=== PATIENT | female | born 1990 | race Caucasian/White ===

== ENCOUNTER 2016-12-16 11:12 | Outpatient (CLI) | payer MEDICAID, OTHER ==
[~2016-12-16] VITALS: Ht 165.1 cm; Wt 78.6 kg
[~2016-12-16 11:12] MED LIST: FIORICET PO; HYDR-3498 PO; IBUP400T22 PO; ONDA4TAB8 PO
[2016-12-16] MEDS ORDERED: PRENAT PO (11:42)
[2016-12-16 11:43] VITALS: BP 105/60; PULSE 94; RESP 18; Ht 165.1 cm; Wt 78.6 kg
[2016-12-16 12:42] LABS: ADD UMIC NO; URINE BILIRUBIN (Dip) NEGATIVE (NEGATIVE); URINE BLOOD (Dip) NEGATIVE (NEGATIVE); URINE COLOR LT. YELLOW (YELLOW); URINE GLUCOSE (Dip) NEGATIVE (NEGATIVE); URINE KETONES (Dip) NEGATIVE (NEGATIVE); URINE LEUKOCYTE ESTERASE (Dip) NEGATIVE (NEGATIVE); URINE NITRITE (Dip) NEGATIVE (NEGATIVE); URINE TOTAL PROTEIN (Dip) NEGATIVE (NEGATIVE); URINE UROBILINOGEN (Dip) 0.2 E.U./dL (0.1-1.0)
[2016-12-16 13:09] LABS: ADD SCAN DIFF NO
[2016-12-16 13:13] LABS: BASOPHILS % 0.2 % (0.0-2.0); EOSINOPHILS # 0.3 10^3/ul (0.0-0.5); EOSINOPHILS % 3.2 % (0.0-7.0); HEMATOCRIT 31.2 % (37.0-47.0); HEMOGLOBIN 10.3 g/dl (12.0-16.0); LYMPHOCYTES # 2.2 10^3/ul (0.8-2.9); LYMPHOCYTES % 25.1 % (15.0-51.0); MEAN CORPUSCULAR HEMOGLOBIN 28.2 pg (29.0-33.0); MEAN CORPUSCULAR VOLUME 85.5 fl (82.0-101.0); MEAN PLATELET VOLUME 12.3 fl (7.4-10.4); MONOCYTE # 0.5 10^3/ul (0.3-0.9); MONOCYTES % 6.1 % (0.0-11.0); NEUTROPHIL # 5.6 10^3/ul (1.6-7.5); NEUTROPHILS % 64.4 % (39.0-77.0); PLATELET COUNT 159 10^3/UL (140-415); RED BLOOD COUNT 3.65 10^6/ul (4.20-5.40); RED CELL DISTRIBUTION WIDTH 12.9 % (11.5-14.5); WHITE BLOOD COUNT 8.7 10^3/ul (4.8-10.8)
[2016-12-16 13:21] LABS: ALBUMIN 3.3 g/dl (3.3-4.9)
[2016-12-16 13:22] LABS: POTASSIUM 3.7 mmol/L (3.5-5.1)
[2016-12-16 13:24] LABS: ALBUMIN/GLOBULIN RATIO 1.13; BILIRUBIN,INDIRECT 0.1 mg/dl (0-1.1); BILIRUBIN,TOTAL 0.1 mg/dl (0.2-1.3); CREATININE 0.42 mg/dl (0.44-1.00); TOTAL PROTEIN 6.2 g/dl (6.1-8.1)
[2016-12-16 13:25] LABS: CALCIUM 8.8 mg/dl (8.4-10.2)
[2016-12-16] MEDS ORDERED: PROMETHAZINE 25 MG TAB PO ONE (13:30)
--- NOTE | 2016-12-16 14:27 | TRIAGE ---
OB Triage Datetime Report Generated by CPN: 12/16/2016 14:27 Datetime: 12/16/2016 14:00 Stage of : OB Triage Maternal Assessment Level of Consciousness: Fully Conscious Labor Evaluation Frequency: NONE Monitor Mode: External Monitor Mode: External US Pain Assessment Pain Scale: 0 Pain Presence: None/Denies Pain Goal: 0 Vaginal Exam Membrane Status: Intact Vaginal Bleeding: None Datetime: 12/16/2016 13:00 Stage of : OB Triage Maternal Assessment Level of Consciousness: Fully Conscious Labor Evaluation Frequency: NONE Monitor Mode: External Monitor Mode: External US (Annotations: ORDERS FOR LIMITED MONITORING) Pain Assessment Pain Scale: 0 Pain Presence: None/Denies Pain Goal: 0 Vaginal Exam Membrane Status: Intact Vaginal Bleeding: None Datetime: 12/16/2016 12:00 Stage of : OB Triage Maternal Assessment Level of Consciousness: Fully Conscious Labor Evaluation Frequency: NONE Monitor Mode: External Heart Rate FHR Baseline Rate: 140 Monitor Mode: External US Variability: Moderate 6-25 bpm Accelerations: AGA Decelerations: AGA Pain Assessment Pain Scale: 0 Pain Presence: None/Denies Pain Goal: 0 Vaginal Exam Membrane Status: Intact Vaginal Bleeding: None Datetime: 12/16/2016 11:41 Assessment Type: Triage Maternal Assessment Level of Consciousness: Fully Conscious DTR's/Clonus: DTRs 2+; No Clonus Headache: Denies Blurred Vision: No Respiratory Effort: Unlabored; Regular Rhythm; Equal Expansion Breath Sounds, Left: Clear and Equal Breath Sounds, Right: Clear and Equal Nausea/Vomiting: Denies RUQ Epigastric Pain: Denies Lower Extremities Edema: None Degree: None Upper Extremities Edema: None Degree: None Facial Edema: None Fall Risk Assessment History of Falling: (0) No Secondary Diagnosis: (0) No Ambulatory Aid: (0) Bedrest/Nurse Assist IV Therapy: (0) No Gait: (0) Normal/Bedrest/Immobile Mental Status: (0) Oriented to Own Ability Fall Score: 0 Fall Risk Score Definition: No Risk: No action required Datetime: 12/16/2016 11:39 Time of Arrival: 12/16/2016 11:05 EGA: 23.2 Arrived By: Ambulatory Arrived From: Office Chief Complaint: PT SENT FROM CLINIC FOR EVAL. OF CHOLESTASIS Movement: Present Contractions: Denies/Absent Rupture of Membranes: Denies Vaginal Bleeding: None Vaginal Discharge: Denies Recent Sexual Intercouse: Yes Abdominal Trauma: Not Applicable Patient Complaints: None Time Provider Notified: 12/16/2016 11:55 Provider Notified: KRISHNA Initial Plan: EFM, CBC, CMP, LFT'S, PHENERGAN PO
--- NOTE | 2016-12-16 17:45 | QN ---
Documentation Comment 26-year-old with IUP at 23 weeks and 2 days was sent from the clinic today for evaluation due to rash in her body and positive parvovirus antibody. Patient reports has been having erythematous papular rash started since 20 days ago. Per patient had a fever 20 days ago when the rashes started. However the fever resolved. Rash continued. Patient reports rash area only is localized and itching. She denies any itching of any other part of her body or itching of the pounds or soles. Patient denies any known history of food allergy or pollen allergy. She denies changing her detergents or body lotions or soap. Patient denies any sick contacts. She denied anyone around her with having the same rash. Patient had been tested for parvovirus in the clinic and was noted to have positive IgM and IgG antibody. Patient was given an unknown cream that worsened her rash and had burning sensation when she used topical cream. She had not tried any other medication. She denies any leaking of fluid, vaginal bleeding or decreased movement or contractions. Physical examination: General appearance, alert and oriented 4 patient is mild distress There is a maculopapular rash over the upper part of the chest and supple axillary area in both sides with slightly thickened skin. Exam consistent with eczema. Rashes localized and involves the entire axillary areas. There is no vesicle seen. Rash is maculopapular Abdomen: Soft, nontender, gravid, fundal height consistent with gestational age. Extremities no evidence of rash in any other part of the extremities or any other part of the body except stated above. Lower extremity, no calf tenderness, no cords palpable NST: heart tone appropriate for gestational age, no contraction on the monitor seen Hematology - 72 Hrs Test 12/16/16 12:40 White Blood Count 8.710^3/ul (4.8-10.8) Red Blood Count 3.6510^6/ul (4.20-5.40) L Hemoglobin 10.3g/dl (12.0-16.0) L Hematocrit 31.2% (37.0-47.0) L Mean Corpuscular Volume 85.5fl (82.0-101.0) Mean Corpuscular Hemoglobin 28.2pg (29.0-33.0) L Mean Corpuscular Hemoglobin Concent 33.0g/dl (32.0-37.0) Red Cell Distribution Width 12.9% (11.5-14.5) Platelet Count 69881^3/UL (140-415) Mean Platelet Volume 12.3fl (7.4-10.4) #H Neutrophils % 64.4% (39.0-77.0) Lymphocytes % 25.1% (15.0-51.0) Monocytes % 6.1% (0.0-11.0) Eosinophils % 3.2% (0.0-7.0) Basophils % 0.2% (0.0-2.0) Nucleated Red Blood Cells % 0.0/100WBC (0.0-0.0) Neutrophils # 5.610^3/ul (1.6-7.5) Lymphocytes # 2.210^3/ul (0.8-2.9) Monocytes # 0.510^3/ul (0.3-0.9) Eosinophils # 0.310^3/ul (0.0-0.5) Basophils # 0.010^3/ul (0.0-0.1) Nucleated Red Blood Cells # 0.010^3/ul (0.0-0.0) Chemistry Test 12/16/16 12:40 Sodium Level 135mmol/L (135-144) Potassium Level 3.7mmol/L (3.5-5.1) Chloride Level 107mmol/L (97-110) Carbon Dioxide Level 23mmol/L (21-31) Anion Gap 9 (8-16) Blood Urea Nitrogen 4mg/dl (7-20) L Creatinine 0.42mg/dl (0.44-1.00) L Glucose Level 77mg/dl (70-220) Calcium Level 8.8mg/dl (8.4-10.2) Total Bilirubin 0.1mg/dl (0.2-1.3) L Direct Bilirubin 0.00mg/dl (0.00-0.20) Indirect Bilirubin 0.1mg/dl (0-1.1) Aspartate Amino Transf (AST/SGOT) 17IU/L (15-46) Alanine Aminotransferase (ALT/SGPT) 29IU/L (13-69) Alkaline Phosphatase 88IU/L (42-121) Total Protein 6.2g/dl (6.1-8.1) Albumin 3.3g/dl (3.3-4.9) Globulin 2.90g/dl (1.3-3.2) Albumin/Globulin Ratio 1.13 Patient received a dose of oral promethazine and symptoms significantly resolved with promethazine p.o. Lab results from clinic reviewed. There is positive IgM and IgG antibody. This more correlates with chronic infection. Body rash is more correlates with allergy. Cannot rule out environmental versus food allergy which is in differential. At this point, patient will be discharged home with a follow-up with her OB clinic. She will likely need to be referred to maternal medicine for evaluation for positive parvovirus and possibly ultrasound evaluation. The rash that the patient currently have it for the last 20 days is more correlates with eczema and allergic reaction versus any infection. I would still suggest this case be referred to maternal medicine for evaluation and recommendation Assessment: IUP at 23 weeks and 2 days Maculopapular rash with itching for 20 days, exam consistent with contact dermatitis or allergic reaction. Responded well to promethazine oral. Patient will be discharged with promethazine to use it 4 times daily as needed Strict labor precaution and kick count discussed with the patient with follow-up with her OB clinic for evaluation and workup of positive parvovirus, although I think that this is likely related to a prior infection Patient verbalized understanding. All questions were answered. AMANDA KELLER MD Dec 16, 2016 17:45
== END 2016-12-16 14:36 | disposition home or self-care (01) ==
LOC: OBT 11:12 → L-D 11:13 → OBT 14:36
PROVIDERS: ATTEND Obstetrics & Gynecology Obstetrics
DX: O60.02 Preterm labor without delivery, second trimester (principal); O26.892 Other specified pregnancy related conditions, second trimester; R21 Rash and other nonspecific skin eruption; Z3A.23 23 weeks gestation of pregnancy
CPT/HCPCS: 36415; 80053; 80076; 81003; 85025; Z7500; Z7610; G0463

== ENCOUNTER 2017-02-08 18:07 | Outpatient (CLI) | payer OTHER ==
[~2017-02-08] VITALS: Ht 165.1 cm; Wt 82.5 kg
[~2017-02-08 18:07] MED LIST changes: -FIORICET PO; -HYDR-3498 PO; -IBUP400T22 PO; -ONDA4TAB8 PO; +PRENAT PO
[2017-02-08 18:16] VITALS: Ht 165.1 cm; Wt 82.5 kg
[2017-02-08 18:17] VITALS: BP 110/57; PULSE 96; RESP 18
--- NOTE | 2017-02-08 19:17 | RADRPT ---
PROCEDURE: US OB. CLINICAL INDICATION: Size and dates TECHNIQUE: Multiple sonographic images of the pelvis and gravid uterus were obtained. The images were reviewed on a PACS workstation. COMPARISON: No prior studies are available for comparison. FINDINGS: There is a single viable intrauterine gestation. Cardiac activity is present with 156 beats per min rene. There is a vertex presentation. The placenta is fundal. There is no evidence for an abruption or placenta previa. There is a normal amount of amniotic fluid with an LEEANN = 14.5 cm. Measurements were made in order to determine age. The results are as follows: BPD =7.9 cm HC =29.2 cm AC =30.1 cm FL =6.5 cm Estimated gestational age of approximately 32 weeks and 6 days based on ultrasound measurements. Clinical age: 32 weeks and 5 days. The estimated date of delivery is 03/30/17, based on ultrasound measurements. The EFW = 2190 g, 63%, based on LMP age. RPTAT: AA IMPRESSION: Single viable intrauterine gestation of approximately 32 weeks and 6 days based on ultrasound measu rements. .Miky Bond MD, Date Time Electronically viewed and signed by .Miky Bond MD, on 02/08/2017 19:17 .S/
[2017-02-08 19:37] LABS: ADD SCAN DIFF NO
[2017-02-08 19:41] LABS: BASOPHILS % 0.1 % (0.0-2.0); EOSINOPHILS # 0.2 10^3/ul (0.0-0.5); EOSINOPHILS % 1.7 % (0.0-7.0); HEMATOCRIT 29.7 % (37.0-47.0); HEMOGLOBIN 9.7 g/dl (12.0-16.0); LYMPHOCYTES # 2.3 10^3/ul (0.8-2.9); LYMPHOCYTES % 26.9 % (15.0-51.0); MEAN CORPUSCULAR HEMOGLOBIN 27.1 pg (29.0-33.0); MEAN CORPUSCULAR HGB CONC 32.7 g/dl (32.0-37.0); MEAN PLATELET VOLUME 12.8 fl (7.4-10.4); MONOCYTE # 0.7 10^3/ul (0.3-0.9); MONOCYTES % 7.8 % (0.0-11.0); NEUTROPHIL # 5.4 10^3/ul (1.6-7.5); NEUTROPHILS % 61.9 % (39.0-77.0); PLATELET COUNT 139 10^3/UL (140-415); RED BLOOD COUNT 3.58 10^6/ul (4.20-5.40); RED CELL DISTRIBUTION WIDTH 12.5 % (11.5-14.5); WHITE BLOOD COUNT 8.7 10^3/ul (4.8-10.8)
[2017-02-08 19:52] LABS: ADD UMIC YES; URINE BILIRUBIN (Dip) NEGATIVE (NEGATIVE); URINE BLOOD (Dip) NEGATIVE (NEGATIVE); URINE COLOR LT. YELLOW (YELLOW); URINE KETONES (Dip) NEGATIVE (NEGATIVE); URINE LEUKOCYTE ESTERASE (Dip) TRACE (NEGATIVE); URINE NITRITE (Dip) NEGATIVE (NEGATIVE); URINE TOTAL PROTEIN (Dip) NEGATIVE (NEGATIVE); URINE UROBILINOGEN (Dip) 0.2 E.U./dL (0.1-1.0)
[2017-02-08 19:55] LABS: POTASSIUM 3.4 mmol/L (3.5-5.1)
[2017-02-08 19:57] LABS: ALBUMIN/GLOBULIN RATIO 0.96; BILIRUBIN,INDIRECT 0.1 mg/dl (0-1.1); BILIRUBIN,TOTAL 0.1 mg/dl (0.2-1.3); CREATININE 0.44 mg/dl (0.44-1.00); TOTAL PROTEIN 6.1 g/dl (6.1-8.1)
[2017-02-08 19:58] LABS: CALCIUM 9.1 mg/dl (8.4-10.2)
[2017-02-08 20:04] LABS: BACTERIA,URINE FEW; SQUAMOUS EPITHELIAL CELL,UR MODERATE; URINE RBCS NONE SEEN /HPF (0)
[2017-02-08] MEDS ORDERED: LACTATED RINGER'S 1,000 ML IV STA (20:41)
[2017-02-08] MEDS ORDERED: LACTATED RINGER'S 1,000 ML IV SCH (21:45)
--- NOTE | 2017-02-08 21:49 | RADRPT ---
PROCEDURE: Limited obstetric ultrasound CLINICAL INDICATION: Pain TECHNIQUE: Multiple transverse and longitudinal grayscale images of the pelvis were obtained shetty svaginally.. COMPARISON: same day FINDINGS: The cervix is closed with a length of 4.5 cm. RPTAT: AA IMPRESSION: Cervix length measures 4.5 cm. .Miky Bond MD, MD Date Time Electronically viewed and signed by .Miky Bond MD, on 02/08/2017 21:49 .S/
--- NOTE | 2017-02-08 23:50 | TRIAGE ---
OB Triage Datetime Report Generated by CPN: 02/08/2017 23:50 Datetime: 02/08/2017 23:00 Stage of : OB Triage Datetime: 02/08/2017 22:57 Stage of : OB Triage Labor Evaluation Frequency: x6 Monitor Mode: External Duration (sec)2399: 50-70 Quality: Mild Resting Tone Register: Relaxed Heart Rate FHR Baseline Rate: 125 Monitor Mode: External US Variability: Moderate 6-25 bpm Accelerations: 15X15 Decelerations: Variable Category: Category I Comments: Appropriate for GA Datetime: 02/08/2017 22:54 Stage of : OB Triage Datetime: 02/08/2017 22:47 Stage of : OB Triage Datetime: 02/08/2017 21:30 Stage of : OB Triage Labor Evaluation Frequency: 2-9 Monitor Mode: External Duration (sec)2399: 40-70 Quality: Mild Resting Tone Register: Relaxed Heart Rate FHR Baseline Rate: 135 Monitor Mode: External US Variability: Moderate 6-25 bpm Accelerations: 15X15 Decelerations: None Category: Category I Datetime: 02/08/2017 21:04 Stage of : OB Triage Vaginal Exam Dilatation (cms): 0.0 Effacement (%): 0 Exam By: Dr Delshad Vaginal Bleeding: None Datetime: 02/08/2017 20:59 Stage of : OB Triage Datetime: 02/08/2017 20:30 Stage of : OB Triage Labor Evaluation Frequency: 4-9 Monitor Mode: External Duration (sec)2399: 40-80 Quality: Mild Resting Tone Register: Relaxed Heart Rate FHR Baseline Rate: 140 Monitor Mode: External US Variability: Moderate 6-25 bpm Accelerations: 15X15 Decelerations: Variable Category: Category I Comments: APPROPRIATE FOR GA Datetime: 02/08/2017 19:30 Stage of : OB Triage Labor Evaluation Frequency: 4-10 Monitor Mode: External Duration (sec)2399: 40-100 Quality: Mild Resting Tone Register: Relaxed Heart Rate FHR Baseline Rate: 140 Monitor Mode: External US Variability: Moderate 6-25 bpm Accelerations: 15X15 Decelerations: None Category: Category I Datetime: 02/08/2017 18:47 Stage of : OB Triage Labor Evaluation Frequency: X3 Monitor Mode: External Duration (sec)2399: 40-50 Pattern: Normal: <= 5 Contractions in 10 Minutes Resting Tone Register: Relaxed Heart Rate FHR Baseline Rate: 140 Monitor Mode: External US Variability: Moderate 6-25 bpm Accelerations: 15X15 Decelerations: None Category: Category I Datetime: 02/08/2017 18:32 Assessment Type: Admission Assessment Maternal Assessment Level of Consciousness: Fully Conscious DTR's/Clonus: DTRs 2+; No Clonus Headache: Generalized Blurred Vision: No Respiratory Effort: Unlabored; Regular Rhythm; Equal Expansion Breath Sounds, Left: Clear and Equal Breath Sounds, Right: Clear and Equal Nausea/Vomiting: Present RUQ Epigastric Pain: Present Lower Extremities Edema: None Degree: None Upper Extremities Edema: None Degree: None Facial Edema: None Fall Risk Assessment History of Falling: (0) No Secondary Diagnosis: (0) No Ambulatory Aid: (0) Bedrest/Nurse Assist IV Therapy: (0) No Gait: (0) Normal/Bedrest/Immobile Mental Status: (0) Oriented to Own Ability Fall Score: 0 Fall Risk Score Definition: No Risk: No action required Datetime: 02/08/2017 18:30 Time of Arrival: 02/08/2017 18:02 EGA: 31.0 Arrived By: Ambulatory Arrived From: Office Chief Complaint: PT. WITH A REFERRAL FOR C/O NAUSEA, RUQ Movement: Present Contractions: Denies/Absent Rupture of Membranes: Denies Vaginal Bleeding: None Vaginal Discharge: Denies Recent Sexual Intercouse: Denies Abdominal Trauma: Not Applicable Patient Complaints: None Provider Notified: DR. JAMISON Initial Plan: TOCO/US, CBC, CMP, AMALYSE, LIPASE, UA. EFW, LEEANN Datetime: 02/08/2017 18:17 Stage of : OB Triage Pain Assessment Pain Scale: 8 Pain Presence: Intermittent Pain Type: Contraction Pain Relief Measures: Comfort Measures Pain Assessment Comments: RUQ Datetime: 12/16/2016 11:41 Fall Score: 0 Fall Risk Score Definition: No Risk: No action required Datetime: 12/16/2016 11:39 EGA: 23.2
== END 2017-02-08 23:15 | disposition home or self-care (01) ==
LOC: L-D 18:07 → OBT 18:07 → L-D 18:09 → OBT 23:15
PROVIDERS: ATTEND Obstetrics & Gynecology
DX: O26.893 Other specified pregnancy related conditions, third trimester (principal); Z3A.31 31 weeks gestation of pregnancy; R11.0 Nausea; R10.11 Right upper quadrant pain
CPT/HCPCS: 36415; 76815; 76817; 80053; 81001; 82150; 83690; 85025; 96360; 96361; J7120; Z7500; G0463

== ENCOUNTER 2017-02-24 14:34 | Outpatient (CLI) | payer OTHER ==
[~2017-02-24] VITALS: Ht 165.1 cm; Wt 81.8 kg
[2017-02-24 15:17] VITALS: Ht 165.1 cm; Wt 81.8 kg
[2017-02-24 15:19] VITALS: BP 106/66; PULSE 91; RESP 20
[2017-02-24 15:42] LABS: ADD UMIC NO; URINE BILIRUBIN (Dip) NEGATIVE (NEGATIVE); URINE BLOOD (Dip) NEGATIVE (NEGATIVE); URINE COLOR LT. YELLOW (YELLOW); URINE KETONES (Dip) NEGATIVE (NEGATIVE); URINE LEUKOCYTE ESTERASE (Dip) NEGATIVE (NEGATIVE); URINE NITRITE (Dip) NEGATIVE (NEGATIVE); URINE TOTAL PROTEIN (Dip) NEGATIVE (NEGATIVE); URINE UROBILINOGEN (Dip) 0.2 E.U./dL (0.1-1.0)
--- NOTE | 2017-02-24 15:56 | RADRPT ---
PROCEDURE: US OB. CLINICAL INDICATION: Size and dates , labor TECHNIQUE: Multiple sonographic images of the pelvis and gravid uterus were obtained. The images were reviewed on a PACS workstation. COMPARISON: 02/08/2017 FINDINGS: There is a single viable intrauterine gestation. Cardiac activity is present with 129 beats per min rene. There is a vertex presentation. The placenta is posterior. There is no evidence for an abruption or placenta previa. There is a normal amount of amniotic fluid with an LEEANN = 13.6 cm. Measurements were made in order to determine age. The results are as follows: BPD =8.7 cm HC =31.6 cm AC =30.8 cm FL =6.9 cm Estimated gestational age of approximately 35 weeks and 1 day based on ultrasound measurements. Clinical age: 35 weeks and 2 days. The estimated date of delivery is 03/30/2017, based on ultrasound measurements. The EFW = 2575 g, 40.3%, based on LMP age. RPTAT: AA IMPRESSION: Single viable intrauterine gestation of approximately 35 weeks and 1 day based on ultrasound measur ements. .Miky Bond MD, Date Time Electronically viewed and signed by .Miky Bond MD, on 02/24/2017 15:56 .S/
--- NOTE | 2017-02-24 16:03 | RADRPT ---
PROCEDURE: US OB biophysical profile. Ultrasound cervix CLINICAL INDICATION: decreased movements, labor TECHNIQUE: Multiple sonographic images of the pelvis were obtained. In addition, translabial imag es of the cervix were obtained. The images were reviewed on a PACS workstation. COMPARISON: 02/08/2017 FINDINGS: There is a single viable intrauterine gestation. Cardiac activity is present with 142 beats per min [place]. There is a vertex presentation. The placenta is posterior. There is no evidence for an abruption or placenta previa. There is a normal amount of amniotic fluid with an LEEANN = 13.6 cm. The cervix is closed and measures 4.6 cm in length. Biophysical profile: movement 2/2 tone 2/2. breathing 2/2 LEEANN 2/2 Total 04/27 RPTAT: AA . IMPRESSION: Normal biophysical profile. Cervix is closed and measures 4.6 cm length. . .Miky Bond MD, MD Date Time Electronically viewed and signed by .Miky Bond MD, on 02/24/2017 16:03 .S/
--- NOTE | 2017-02-24 17:22 | PN ---
Triage Information Date/Time February 24, 2017 Weeks of Gestation 33 weeks and 2 days : 3 Para: 1 Diabetes: none Hypertention: none Additional information 27-year-old with IUP at 33 weeks and 2 days with care with Dr. ortiz damaris was seen today in the office and was complaining of occasional lower abdominal pain as well as cramps every 1 hour. She was sent to triage to rule out labor. She reports lower abdominal pain more when she is sitting. This pain is constant. Has been going on for the last week. She also reports crampy pain from the back with radiation to the front every hour. She denies any leaking of fluid, vaginal bleeding or decreased movements. She was evaluated in triage a monitor. She had occasional rare contraction. NST category 1. FFM: Negative Cervical length: 4.6 BPP: 04/27 Objective Vital Signs Date Time Temp Pulse Resp B/P Pulse Ox O2 Delivery O2 Flow Rate FiO2 02/24/17 15:19 98.0 91 20 106/66 99 Room Air Exam Const: A&O, AND Head: Atraumatic Eyes: Normal Conjunctiva ENT: Normal External Ears, Nose and Mouth. Neck: Full range of motion..~ No meningismus. Resp: Clear to auscultation bilaterally Cardio: Regular rate and rhythm, no murmurs Abd: Soft, non tender, non distended. Normal bowel sounds Fundal height consistent with dates NST: Category 1 Results/Medications Results 24 hrs Laboratory Tests Test 02/24/17 15:00 Urine Color LT. YELLOW Urine Clarity CLEAR Urine pH 6.5 Urine Specific [place] <=1.005 L Urine Ketones NEGATIVE Urine Nitrite NEGATIVE Urine Bilirubin NEGATIVE Urine Urobilinogen 0.2 E.U./dL Urine Leukocyte Esterase NEGATIVE Urine Hemoglobin NEGATIVE Urine Glucose 0.25% H Urine Total Protein NEGATIVE Fibronectin NEGATIVE Imaging Results PROCEDURE: US OB biophysical profile. Ultrasound cervix CLINICAL INDICATION: decreased movements, labor TECHNIQUE: Multiple sonographic images of the pelvis were obtained. In addition, translabial images of the cervix were obtained. The images were reviewed on a PACS workstation. COMPARISON: 02/08/2017 FINDINGS: There is a single viable intrauterine gestation. Cardiac activity is present with 142 beats per minute. There is a vertex presentation. The placenta is posterior. There is no evidence for an abruption or placenta previa. There is a normal amount of amniotic fluid with an LEEANN = 13.6 cm. The cervix is closed and measures 4.6 cm in length. Biophysical profile: movement 2/2 tone 2/2. breathing 2/2 LEEANN 2/2 Total 04/27 RPTAT: AA . IMPRESSION: Normal biophysical profile. Cervix is closed and measures 4.6 cm length. . PROCEDURE: US OB. CLINICAL INDICATION: Size and dates , labor TECHNIQUE: Multiple sonographic images of the pelvis and gravid uterus were obtained. The images were reviewed on a PACS workstation. COMPARISON: 02/08/2017 FINDINGS: There is a single viable intrauterine gestation. Cardiac activity is present with 129 beats per minute. There is a vertex presentation. The placenta is posterior. There is no evidence for an abruption or placenta previa. There is a normal amount of amniotic fluid with an LEEANN = 13.6 cm. Measurements were made in order to determine age. The results are as follows: BPD = 8.7 cm HC = 31.6 cm AC = 30.8 cm FL = 6.9 cm Estimated gestational age of approximately 35 weeks and 1 day based on ultrasound measurements. Clinical age: 35 weeks and 2 days. The estimated date of delivery is 03/30/2017, based on ultrasound measurements. The EFW = 2575 g, 40.3%, based on LMP age. RPTAT: AA IMPRESSION: Single viable intrauterine gestation of approximately 35 weeks and 1 day based on ultrasound measurements. Assessment/Plan IUP at 33 weeks and 2 days no evidence of labor Lower abdominal pain due to round ligament pain testing reassuring Patient reassured DC home Follow-up in 1-2 days with her OB office labor precaution and kick count discussed AMANDA KELLER MD Feb 24, 2017 17:22
--- NOTE | 2017-02-24 19:28 | TRIAGE ---
OB Triage Datetime Report Generated by CPN: 02/24/2017 19:27 Datetime: 02/24/2017 16:31 Labor Evaluation Frequency: NO UC'S NOTED Monitor Mode: External Quality: Moderate Pattern: Normal: <= 5 Contractions in 10 Minutes Resting Tone [place]: Relaxed Heart Rate FHR Baseline Rate: 145 Monitor Mode: External US Variability: Moderate 6-25 bpm Accelerations: 15X15 Decelerations: None Category: Category I Datetime: 02/24/2017 15:28 Labor Evaluation Frequency: IRREG Monitor Mode: External Duration (sec)2399: 50-80 Quality: Moderate Pattern: Normal: <= 5 Contractions in 10 Minutes Resting Tone [place]: Relaxed Heart Rate FHR Baseline Rate: 140 Monitor Mode: External US Variability: Moderate 6-25 bpm Accelerations: 15X15 Decelerations: None Category: Category I Comments: NST REACTIVE FOR GESTATIONAL AGE Datetime: 02/24/2017 15:14 Stage of : OB Triage Maternal Assessment Level of Consciousness: Fully Conscious DTR's/Clonus: DTRs 2+; No Clonus Headache: Denies Blurred Vision: No Respiratory Effort: Unlabored; Regular Rhythm; Equal Expansion Breath Sounds, Left: Clear and Equal Breath Sounds, Right: Clear and Equal Nausea/Vomiting: Denies RUQ Epigastric Pain: Denies Lower Extremities Edema: None Degree: None Upper Extremities Edema: None Degree: None Facial Edema: None Temperature Route: Axillary Fall Risk Assessment History of Falling: (0) No Secondary Diagnosis: (0) No Ambulatory Aid: (0) Bedrest/Nurse Assist IV Therapy: (0) No Gait: (0) Normal/Bedrest/Immobile Mental Status: (0) Oriented to Own Ability Fall Score: 0 Fall Risk Score Definition: No Risk: No action required Datetime: 02/24/2017 15:13 Time of Arrival: 02/24/2017 14:30 EGA: 33.2 Arrived By: Ambulatory Arrived From: Home Chief Complaint: CONTRACTIONS Movement: Present Contractions: Irregular Rupture of Membranes: Denies Vaginal Bleeding: None Vaginal Discharge: Denies Recent Sexual Intercouse: Denies Abdominal Trauma: Not Applicable Patient Complaints: Cramping; Back Pain; Headache; Dizziness Time Provider Notified: 02/24/2017 16:25 Provider Notified: DR. JAMISON Initial Plan: FFN, CL, BPP Datetime: 02/08/2017 18:32 Fall Score: 0 Fall Risk Score Definition: No Risk: No action required Datetime: 02/08/2017 18:30 EGA: 31.0 Datetime: 12/16/2016 11:41 Fall Score: 0 Fall Risk Score Definition: No Risk: No action required Datetime: 12/16/2016 11:39 EGA: 23.2
== END 2017-02-24 17:25 | disposition home or self-care (01) ==
LOC: L-D 14:34 → OBT 14:34
PROVIDERS: ATTEND Obstetrics & Gynecology
DX: O26.893 Other specified pregnancy related conditions, third trimester (principal); R10.30 Lower abdominal pain, unspecified; M54.9 Dorsalgia, unspecified; O62.9 Abnormality of forces of labor, unspecified; O36.8130 Decreased fetal movements, third trimester, not applicable or unspecified; O26.843 Uterine size-date discrepancy, third trimester; O60.03 Preterm labor without delivery, third trimester; Z3A.33 33 weeks gestation of pregnancy
CPT/HCPCS: 76815; 76817; 76818; 81003; 82731; Z7500; G0463

== ENCOUNTER 2017-03-22 21:04 | Inpatient (IN) | payer OTHER ==
[~2017-03-22] VITALS: Ht 165.1 cm; Wt 83.9 kg
[2017-03-22 21:43] VITALS: BP 110/63; PULSE 89; RESP 18
[2017-03-22] MEDS ORDERED: FERR134T PO (21:46)
[2017-03-22] MEDS ORDERED: ACETAMINOPHEN 500 MG TAB PO STA (22:47)
[2017-03-23] MEDS: LACTATED RINGER'S 1,000 ML IV SCH ×4 (00:01→16:57)
[2017-03-23 01:39] LABS: UR MUCUS FEW /HPF (NONE SEEN); UR RBC 1 /HPF (0-5); UR SQUAMOUS EPITHELIAL CELL FEW /HPF (FEW)
[2017-03-23 02:17] LABS: ADD UMIC YES; UR ASCORBIC ACID NEGATIVE (NEGATIVE); UR BILIRUBIN (Dip) NEGATIVE (NEGATIVE); UR BLOOD (Dip) NEGATIVE (NEGATIVE); UR CLARITY CLEAR (CLEAR); UR COLOR YELLOW (YELLOW); UR GLUCOSE (Dip) 1+ mg/dL (NEGATIVE); UR KETONES (Dip) NEGATIVE (NEGATIVE); UR LEUKOCYTE ESTERASE (Dip) 2+ Leu/ul (NEGATIVE); UR NITRITE (Dip) NEGATIVE (NEGATIVE); UR SPECIFIC GRAVITY (Dip) 1.011 (1.003-1.030); UR TOTAL PROTEIN (Dip) NEGATIVE (NEGATIVE); UR UROBILINOGEN (Dip) NEGATIVE (NEGATIVE)
[2017-03-23] MEDS ORDERED: BUTORPHANOL 2 MG INJ IV PRN ×2 (03:00)
[2017-03-23] MEDS ORDERED: OXYTOCIN 30 UNITS/LR 500 ML IV SCH ×2 (03:00)
[2017-03-23] MEDS ORDERED: METHYLERGONOVINE 0.2 MG INJ IM PRN (03:00)
[2017-03-23] MEDS ORDERED: OXYTOCIN 30 UNITS/LR 500 ML IV PRN (03:00)
[2017-03-23] MEDS ORDERED: MISOPROSTOL 200 MCG TAB PR PRN (03:00)
[2017-03-23] MEDS ORDERED: CARBOPROST 250 MCG INJ IM PRN (03:00)
[2017-03-23] MEDS ORDERED: IBUPROFEN 600 MG TAB PO PRN (03:00)
[2017-03-23] MEDS ORDERED: LIDOCAINE 1% (MPF) 30 ML INJ INJ PRN (03:00)
[2017-03-23 03:24] LABS: ADD SCAN DIFF NO
[2017-03-23 03:33] LABS: INR 0.92; PROTIME 12.4 Sec (12.2-14.2)
[2017-03-23 03:55] LABS: ABNORMAL IP MESSAGE 1; BASOPHILS % 0.2 % (0.0-2.0); EOSINOPHILS # 0.1 10^3/ul (0.0-0.5); EOSINOPHILS % 1.5 % (0.0-7.0); HEMATOCRIT 31.7 % (37.0-47.0); LYMPHOCYTES % 30.8 % (15.0-51.0); MEAN CORPUSCULAR HEMOGLOBIN 24.9 pg (29.0-33.0); MEAN CORPUSCULAR HGB CONC 31.5 g/dl (32.0-37.0); MEAN CORPUSCULAR VOLUME 78.9 fl (82.0-101.0); MEAN PLATELET VOLUME 13.5 fl (7.4-10.4); MONOCYTE # 0.5 10^3/ul (0.3-0.9); MONOCYTES % 7.7 % (0.0-11.0); NEUTROPHIL # 3.8 10^3/ul (1.6-7.5); NEUTROPHILS % 58.4 % (39.0-77.0); PLATELET COUNT 132 10^3/UL (140-415); RED BLOOD COUNT 4.02 10^6/ul (4.20-5.40); RED CELL DISTRIBUTION WIDTH 14.1 % (11.5-14.5); WHITE BLOOD COUNT 6.5 10^3/ul (4.8-10.8)
[2017-03-23] MEDS ORDERED: LACTATED RINGER'S 1,000 ML IV PRN (04:00)
--- NOTE | 2017-03-23 04:02 | HP ---
Date/Time of Note Date/Time of Note DATE: 03/23/17 TIME: 03:55 OB - History Hx of Present Free Text/Dictation Patient is a 27-year-old with IUP at 37.1 weeks by her stated MIMA presented after she fell down today at 1900 today and landed in the left side. She reports she hit the left side of her abdomen. Denies any vaginal bleeding. She reports feeling contractions and cramps after this incident. Denies any leaking of fluid or vaginal bleeding. Denies any decreased movement. She was observed in triage. Initial exam showed 0.5 cm/50%/-3. After observation with regular contractions cervical change noted that confirmed the patient is in labor. Patient was admitted for management of labor. NST: Category 1. Patient denies any complications during her course. : 3 Para: 1 Spontaneous : 0 Therapeutic : 0 Care: Good Care Obstetrical Complications: None Medical Complications: None Past Family/Social History * Past Medical, Surgical, Family and Obstetric Histories reviewed from chart. Blood Type: A+ Rubella: not immune RPR/VDRL: Negative GBS Status: Negative HBsAG: Unknown OB Admission Exam Vital Signs Vital Signs Vital Signs Date Time Temp Pulse Resp B/P Pulse Ox O2 Delivery O2 Flow Rate FiO2 03/22/17 21:43 98.0 89 18 110/63 Room Air Physical Exam HEENT: WNL Heart: Rhythm Normal Lungs: Clear Abdomen: WNL Cervical Dilatation: 2cm Effacement: 75% Station: -2 Membranes: Intact Heart Rate: 130's Accelerations: Accelerations Present Decelerations: No Decelerations Varibility: Moderate Contractions on Admission: < 5 Minutes Apart Intensity: Moderate OB Assessment/Plan Other Assessment: IUP at 37 weeks and 1 day s/p fall Labor Obtain rest of the labs, Gc/Chlamydia in am Plan: Expectant Management Other plan: Anticipate AMANDA ZHU MD Mar 23, 2017 04:02
--- NOTE | 2017-03-23 04:41 | TRIAGE ---
OB Triage Datetime Report Generated by CPN: 03/23/2017 04:41 Datetime: 03/23/2017 04:12 Labor Evaluation Frequency: 2-4 Monitor Mode: External Duration (sec)2399: 40-80 Quality: Moderate Pattern: Normal: <= 5 Contractions in 10 Minutes Resting Tone Hatch: Relaxed Heart Rate FHR Baseline Rate: 135 Monitor Mode: External US FHR Baseline Changes: No Baseline Change Variability: Moderate 6-25 bpm Accelerations: 15X15 Decelerations: None Category: Category I Pain Assessment Pain Scale: 6 Pain Presence: Intermittent Pain Type: Contraction Pain Location: Abdomen Pain Goal: 5 Pain Relief Measures: Comfort Measures Pain Assessment Comments: PT STILL REFUSING PAIN MEDS AT THIS TIME Datetime: 03/23/2017 03:41 Comments: Monitors on, pt in FBC8 Datetime: 03/23/2017 03:36 Comments: monitor off, moving pt to FBC8 Datetime: 03/23/2017 03:00 Stage of : Labor Assessment Type: Admission Assessment Vaginal Bleeding: None Maternal Assessment Level of Consciousness: Fully Conscious DTR's/Clonus: DTRs 2+; No Clonus Headache: Denies Blurred Vision: No Respiratory Effort: Unlabored; Regular Rhythm; Equal Expansion Breath Sounds, Left: Clear and Equal Breath Sounds, Right: Clear and Equal Nausea/Vomiting: Denies RUQ Epigastric Pain: Denies Lower Extremities Edema: None Degree: None Upper Extremities Edema: None Degree: None Facial Edema: None Fall Risk Assessment History of Falling: (0) No Secondary Diagnosis: (0) No Ambulatory Aid: (0) Bedrest/Nurse Assist IV Therapy: (20) Yes Gait: (0) Normal/Bedrest/Immobile Mental Status: (0) Oriented to Own Ability Fall Score: 20 Fall Risk Score Definition: No Risk: No action required Labor Evaluation Frequency: 3-5 Monitor Mode: External Duration (sec)2399: 60-90 Quality: Mild Pattern: Normal: <= 5 Contractions in 10 Minutes Resting Tone Hatch: Relaxed Heart Rate FHR Baseline Rate: 135 Monitor Mode: External US Variability: Moderate 6-25 bpm Accelerations: 15X15 Decelerations: None Category: Category I Pain Assessment Pain Scale: 5 Pain Presence: Intermittent Pain Type: Contraction Pain Location: Abdomen Pain Goal: 3 Pain Assessment Comments: PT REFUSING PAIN MEDS AT THIS TIME Datetime: 03/23/2017 02:24 Comments: MONITORS ON, PT IN ROOM FBC3 Datetime: 03/23/2017 02:15 Stage of : OB Triage Labor Evaluation Frequency: 3-6 Monitor Mode: External Quality: Moderate Pattern: Normal: <= 5 Contractions in 10 Minutes Resting Tone Hatch: Relaxed Heart Rate FHR Baseline Rate: 135 Monitor Mode: External US FHR Baseline Changes: No Baseline Change Variability: Moderate 6-25 bpm Accelerations: 15X15 Decelerations: None Category: Category I Datetime: 03/23/2017 01:55 Stage of : OB Triage Datetime: 03/23/2017 01:48 Monitor Mode: External Quality: Moderate Pattern: Normal: <= 5 Contractions in 10 Minutes Resting Tone Hatch: Relaxed Heart Rate FHR Baseline Rate: 135 Monitor Mode: External US FHR Baseline Changes: No Baseline Change Variability: Moderate 6-25 bpm Accelerations: 15X15 Decelerations: None Category: Category I Pain Assessment Pain Scale: 5 Pain Presence: Intermittent Pain Type: Contraction Pain Location: Abdomen Vaginal Exam Dilatation (cms): 2.0 Effacement (%): 60 Station: -2 Exam By: Faraz Briones Membrane Status: Intact Vaginal Bleeding: Scant Cervix, Consistency: Soft Cervix, Position: Posterior Presentation 'A': Cephalic Datetime: 03/23/2017 01:13 Monitor Mode: External Quality: Moderate Pattern: Normal: <= 5 Contractions in 10 Minutes Resting Tone Hatch: Relaxed Heart Rate FHR Baseline Rate: 135 Monitor Mode: External US FHR Baseline Changes: No Baseline Change Variability: Moderate 6-25 bpm Accelerations: 15X15 Decelerations: None Category: Category I Datetime: 03/23/2017 00:14 Stage of : OB Triage Monitor Mode: External Quality: Mild Pattern: Normal: <= 5 Contractions in 10 Minutes Resting Tone Hatch: Relaxed Heart Rate FHR Baseline Rate: 140 Monitor Mode: External US FHR Baseline Changes: No Baseline Change Variability: Moderate 6-25 bpm Accelerations: 15X15 Decelerations: None Category: Category I Datetime: 03/22/2017 23:20 Stage of : OB Triage Monitor Mode: External Quality: Mild Pattern: Normal: <= 5 Contractions in 10 Minutes Resting Tone Hatch: Relaxed Heart Rate FHR Baseline Rate: 150 Monitor Mode: External US Datetime: 03/22/2017 22:45 Stage of : OB Triage Monitor Mode: External US Variability: Moderate 6-25 bpm Accelerations: 15X15 Datetime: 03/22/2017 22:22 Stage of : OB Triage Monitor Mode: External Quality: Mild Pattern: Normal: <= 5 Contractions in 10 Minutes Resting Tone Hatch: Relaxed Heart Rate FHR Baseline Rate: 150 Monitor Mode: External US FHR Baseline Changes: No Baseline Change Variability: Moderate 6-25 bpm Accelerations: 15X15 Decelerations: None Category: Category I Vaginal Exam Dilatation (cms): 0.5 Effacement (%): 50 Station: -3 Exam By: Faraz Briones Membrane Status: Intact Vaginal Bleeding: None Cervix, Consistency: Soft Cervix, Position: Posterior Datetime: 03/22/2017 21:39 Stage of : OB Triage Monitor Mode: External Quality: Mild Pattern: Normal: <= 5 Contractions in 10 Minutes Resting Tone Hatch: Relaxed Heart Rate FHR Baseline Rate: 135 Monitor Mode: External US FHR Baseline Changes: No Baseline Change Variability: Moderate 6-25 bpm Accelerations: 15X15 Decelerations: None Category: Category I Datetime: 03/22/2017 21:38 Time of Arrival: 03/22/2017 02:24 EGA: 37.0 Arrived By: Wheelchair Arrived From: TRIAGE Chief Complaint: c/o irreg ucs, and fall at 1900 landing on rt side Movement: Present Contractions: Irregular Time Contractions Began: 03/22/2017 02:00 Rupture of Membranes: Denies Vaginal Bleeding: None Vaginal Discharge: Denies Recent Sexual Intercouse: Denies Abdominal Trauma: Fall Patient Complaints: Contractions Time Provider Notified: 03/22/2017 22:45 Provider Notified: Dr Aguilera Initial Plan: EFM, SVE Datetime: 03/22/2017 21:18 Stage of : OB Triage Maternal Assessment Level of Consciousness: Fully Conscious Headache: Denies Blurred Vision: No Respiratory Effort: Unlabored Nausea/Vomiting: Denies RUQ Epigastric Pain: Denies Facial Edema: None Labor Evaluation Frequency: placed Monitor Mode: External Resting Tone Hatch: Relaxed Monitor Mode: External US Comments: FHT 140 Pain Assessment Pain Scale: 8 Pain Presence: Intermittent Pain Type: Contraction Pain Location: Abdomen Datetime: 02/24/2017 15:14 Fall Score: 0 Fall Risk Score Definition: No Risk: No action required Datetime: 02/24/2017 15:13 EGA: 33.2 Datetime: 02/08/2017 18:32 Fall Score: 0 Fall Risk Score Definition: No Risk: No action required Datetime: 02/08/2017 18:30 EGA: 31.0 Datetime: 12/16/2016 11:41 Fall Score: 0 Fall Risk Score Definition: No Risk: No action required Datetime: 12/16/2016 11:39 EGA: 23.2
[2017-03-23] MEDS ORDERED: FENTAnyl 2MCG/ML-ROPIV 0.2% 100 ML ONE ×2 (05:57→23:14)
--- NOTE | 2017-03-23 14:41 | QN ---
Documentation Comment 37 weeks2/7 days had an accidental fall landed on her side, mostly complaining of back pain and side pain, very occasional contractions noted on the monitor, heart category 1 recommended discharge with analgesic medication for her back pain, patient is concerned if she goes home and pain continues needs to come back she asked if she can stay tonight hoping her back pain improved overnight LEENA LINDSAY MD Mar 23, 2017 14:41
--- NOTE | 2017-03-23 15:24 | RADRPT ---
PROCEDURE: US biophysical profile. CLINICAL INDICATION: Fall. well-being. TECHNIQUE: Multiple sonographic images of the uterus were obtained. The images were revi ewed on a PACS workstation. COMPARISON: 02/24/2017. FINDINGS: There is a single live intrauterine gestation. heart rate is 157 beats per minute. The position is cephalic. The placenta is posterior, grade 2. The LEEANN is 9.8 cm. Breathing Movement: 2 Gross Body Movement: 2 Tone: 2 Qualitative Amniotic Fluid Volume: 2 TOTAL: 8 IMPRESSION: 1. Single viable intrauterine gestation. 2. Biophysical profile = 04/27. 3. LEEANN = 9.8 cm. RPTAT: PP .Kike Duncan MD, MD Date Time Electronically viewed and signed by .Kike Duncan MD, MD on 03/23/2017 15:24 .N/
[2017-03-24] MEDS ORDERED: DIPHENHYDRAMINE 50 MG INJ IV PRN
[2017-03-24] MEDS ORDERED: NALOXONE (0.4 MG/ML) INJ IV PRN
[2017-03-24] MEDS ORDERED: FENTAnyl 2MCG/ML-ROPIV 0.2% 100 ML BAG EPI SCH
[2017-03-24] MEDS ORDERED: HYDROmorphONE 1 MG/ML SYG IV PRN ×2
[2017-03-24] MEDS ORDERED: ONDANSETRON 4 MG INJ IV PRN
[2017-03-24] MEDS: LACTATED RINGER'S 1,000 ML IV SCH ×4 (01:18→20:45)
--- NOTE | 2017-03-24 01:52 | RADRPT ---
PROCEDURE: US OB biophysical profile. CLINICAL INDICATION: decreased movements TECHNIQUE: Multiple sonographic images of the pelvis were obtained. The images were reviewed on a PACS workstation. COMPARISON: No pertinent prior examinations were submitted for comparison. FINDINGS: There is a single viable intrauterine gestation. Cardiac activity is present with 131 beats per min viejas. There is a vertex presentation. The placenta is left lateral in position, grade 2/3 in appearance. There is a normal amount of amniotic fluid with an LEEANN = 14.8 cm. Biophysical profile: movement 2/2 tone 2/2. breathing 2/2 LEEANN 2/2 Total 04/27 IMPRESSION: Normal biophysical profile. RPTAT: HIKT . .Alton Hughes MD, MD Date Time Electronically viewed and signed by .Alton Hughes MD, on 03/24/2017 01:52 .T/
--- NOTE | 2017-03-24 13:54 | DS ---
Date/Time of Note Date/Time of Note DATE: 03/24/17 TIME: 13:51 Obstetrical Discharge Record Final Diagnosis Final Diagnosis: Term not delivered Complications Other (s/p fall. contractions spaced out. not in active labor.) Condition on Discharge Physical Assessment Voiding: Yes Bowel Movement: Yes Calf Tenderness: No Patient Condition: Stable NEHA JAMISON MD Mar 24, 2017 13:54
[2017-03-25] MEDS: LACTATED RINGER'S 1,000 ML IV SCH ×4 (03:00→16:45)
--- NOTE | 2017-03-25 18:11 | QN ---
Documentation Comment Patient was noted to have a heart deceleration on 03/24/2017. Therefore discharge order was held. heart tracing has been reassuring since then. There has been no cervical change. Patient c/o right leg pain since her fall. Will transfer to ED for further evaluation before the patient goes home. NEHA JAMISON MD Mar 25, 2017 18:10
[2017-03-25] MEDS ORDERED: ACET325T33 PO (19:22)
== END 2017-03-25 18:27 | disposition home or self-care (01) | DRG 780 ==
LOC: OBT 21:04 → L-D 21:04 → OBT 03-23 01:55 → L-D 03-23 01:55
PROVIDERS: ADMIT Obstetrics & Gynecology; ATTEND Obstetrics & Gynecology
PROC: 4A1HX4Z Monitoring of Products of Conception, Cardiac Electrical Activity, External Approach (ICD-10-PCS; principal; 2017-03-23)
DX: O47.1 False labor at or after 37 completed weeks of gestation (principal); Z91.81 History of falling; Z3A.37 37 weeks gestation of pregnancy
CPT/HCPCS: 62319; 76818; 81001; 85025; 85610; 85730; 86592; 86900; 86901; 87340; G0463; J3010; J7120

== ENCOUNTER 2017-03-25 18:41 | Emergency (ER) | payer OTHER ==
[~2017-03-25] VITALS: Ht 165.1 cm; Wt 85.5 kg
[~2017-03-25 18:41] MED LIST changes: +FERR134T PO
[2017-03-25 18:46] VITALS: Ht 165.1 cm; Wt 85.5 kg
[2017-03-25] MEDS ORDERED: ACETAMINOPHEN 500 MG TAB PO STA (19:13)
[2017-03-25] MEDS ORDERED: ACET325T33 PO (19:22)
--- NOTE | 2017-03-25 19:56 | ERD ---
ER Documentation Chief Complaint Date/Time DATE: 03/25/17 TIME: 19:52 Chief Complaint glf x 4 days ago, c/o right flank pain, 37 weeks , cleared by ob HPI 27-year-old woman complains of right upper buttock pain status post mechanical fall onto her bottom about 4-5 days ago. Patient is currently about 37 weeks and after the fall 4 days ago she had to be admitted to labor and delivery department due to pelvic contractions. She was admitted for 4 days and they monitor her obstetrically although no imaging was done to the hip or back. She was not discharged with any analgesics. Patient states she is able to ambulate although with ambulation she has pain to the right upper buttock. She denies hip pain, no knee pain, no ankle pain, no fevers or chills, no flank pain, no dysuria or hematuria. Patient denied head or neck injury. ROS All systems reviewed and are negative except as per history of present illness. Medications Home Meds Active Scripts Acetaminophen* (Tylenol*) 325 Mg Tablet, 2 TAB PO Q8 Y for PAIN AND/OR INFLAMMATION, #60 TAB Prov:MARY ADAMS MD 03/25/17 Reported Medications Ferrous Sulfate (Iron) 134 Mg Tablet, 134 MG PO DAILY, TAB 03/22/17 Multivit/Min/Fol Ac/Iron/Pren* ( S*) 1 Tab Tab, 1 TAB PO DAILY, TAB 12/16/16 Allergies Allergies: Coded Allergies: No Known Drug Allergy (Verified Allergy, Mild, 03/25/17) PMhx/Soc History of Surgery: Yes (CHOLECYSTECTOMY) Anesthesia Reaction: No Hx Neurological Disorder: No Hx Respiratory Disorders: No Hx Cardiac Disorders: No Hx Psychiatric Problems: No Hx Miscellaneous Medical Probl: No Hx Alcohol Use: No Hx Substance Use: No Hx Tobacco Use: No Smoking Status: Never smoker FmHx Family History: No diabetes Physical Exam Vitals Vital Signs Date Time Temp Pulse Resp B/P Pulse Ox O2 Delivery O2 Flow Rate FiO2 03/25/17 18:46 97.6 86 20 123/72 97 Physical Exam GENERAL: Well-developed, well-nourished, well-hydrated, in no apparent distress , looks nontoxic in appearance HEENT: Moist mucous membranes, pink conjunctiva, no cervical spine tenderness or step-off deformities, no goiter, no jaundice or icterus, extraocular movements intact without pain. No submandibular induration, and no pharyngeal erythema NEURO: Alert and oriented 3, cranial nerves II through XII intact bilaterally, pupils equal round reactive to light, no focal deficits or facial asymmetry, sensation intact distally Strength 5/5 in upper and lower extremities bilaterally CARDIAC: Regular rate and rhythm, no murmurs rubs or gallops LUNGS: Clear bilaterally no wheezing crackles or stridor ABDOMEN: Soft nontender, no guarding, no rigidity, no rebound, no psoas sign no obturator sign. Normoactive bowel sounds SKIN: Warm and dry to touch, no abrasions, contusions, or hematomas, no lacerations, no ecchymosis, no target lesions, and without ulcers EXTREMITIES: No clubbing cyanosis or edema, calves are bilaterally symmetrical, no Homans sign, no popliteal cord sign. Distal pulses equal and bilateral PSYCH: Normal affect without agitation or irritability Results 24 hrs Current Medications Medications (Trade) Dose Ordered Sig/[place] Route PRN Reason Start Time Stop Time Status Last Admin Dose Admin Acetaminophen (Tylenol Tab) 1,000 mg ONCE STAT PO 03/25/17 19:13 03/25/17 19:14 DC 03/25/17 19:30 Procedures/MDM Patient had reproducible tenderness over the right mid upper buttock but no bony deformity or crepitus. She was able to ambulate and bear her full weight on the right lower extremity alone. Patient refused x-ray imaging to rule out fracture although even in the setting of a fracture patient would not be a candidate and there would be no necessity for emergent orthopedic surgery. She agreed to follow-up with this issue after giving . I did tell her that there is a real possibility of fracture although this cannot be diagnosed until x-ray imaging. She preferred to wait after delivery to pursue any further intervention, imaging, or management. I administered 1 g of acetaminophen p.o. for pain control. Patient feels much better at this time, and vital signs are normal, symptoms have improved. I did give strict instructions to return to the ED if symptoms continue or worsen, patient will otherwise follow-up with primary care physician. Patient understood instructions and agreed to plan. Disclaimer: Inadvertent spelling and grammatical errors are likely due to EHR/ dictation software use and do not reflect on the overall quality of patient care. Also, please note that the electronic time recorded on this note does not necessarily reflect the actual time of the patient encounter. Departure Diagnosis: Primary Impression: Back pain Back pain location: low back pain Chronicity: acute Back pain laterality: right Sciatica presence: without sciatica Qualified Code: M54.5 - Acute right-sided low back pain without sciatica Condition: Good Patient Instructions: Back Sprain/Strain MARY ADAMS MD Mar 25, 2017 19:55
== END 2017-03-25 19:36 | disposition home or self-care (01) ==
LOC: FTE 18:41
DX: O99.89 Other specified diseases and conditions complicating pregnancy, childbirth and the puerperium (principal); M54.5 Low back pain; Z3A.37 37 weeks gestation of pregnancy
CPT/HCPCS: Z7502; Z7610; 99283

== ENCOUNTER 2017-04-05 17:54 | Inpatient (IN) | payer OTHER ==
[~2017-04-05] VITALS: Ht 165.1 cm; Wt 85.2 kg
[~2017-04-05 17:54] MED LIST changes: +ACET325T33 PO
[2017-04-05 18:11] VITALS: BP 110/64; PULSE 93; RESP 18; Ht 165.1 cm; Wt 85.2 kg
--- NOTE | 2017-04-05 18:24 | TRIAGE ---
OB Triage Datetime Report Generated by CPN: 04/05/2017 18:22 Datetime: 04/05/2017 18:13 Vaginal Exam Dilatation (cms): 2.0 Effacement (%): 50 Station: -2 Exam By: MARCO Vaginal Bleeding: None Cervix, Consistency: Firm Cervix, Position: Midposition Datetime: 04/05/2017 18:08 Assessment Type: Triage Maternal Assessment Level of Consciousness: Fully Conscious DTR's/Clonus: DTRs 2+; No Clonus Headache: Denies Blurred Vision: No Respiratory Effort: Unlabored; Regular Rhythm; Equal Expansion Breath Sounds, Left: Clear and Equal Breath Sounds, Right: Clear and Equal Nausea/Vomiting: Denies RUQ Epigastric Pain: Denies Lower Extremities Edema: None Degree: None Upper Extremities Edema: None Degree: None Facial Edema: None Fall Risk Assessment History of Falling: (0) No Secondary Diagnosis: (0) No Ambulatory Aid: (0) Bedrest/Nurse Assist IV Therapy: (0) No Gait: (0) Normal/Bedrest/Immobile Mental Status: (0) Oriented to Own Ability Fall Score: 0 Fall Risk Score Definition: No Risk: No action required Datetime: 04/05/2017 18:06 Time of Arrival: 04/05/2017 15:46 EGA: 39.0 Arrived By: Wheelchair Arrived From: Home Chief Complaint: PT HERE C/O UC'S Movement: Present Contractions: Irregular Time Contractions Began: 04/04/2017 20:00 Rupture of Membranes: Denies Vaginal Bleeding: None Vaginal Discharge: Denies Recent Sexual Intercouse: Denies Abdominal Trauma: Not Applicable Patient Complaints: Contractions; Cramping; Back Pain Time Provider Notified: 04/05/2017 18:21 Provider Notified: DELSHAD Initial Plan: EFM, SVE Datetime: 04/05/2017 18:02 Monitor Mode: External Monitor Mode: External US Datetime: 03/25/2017 17:57 Labor Evaluation Frequency: IRREG Monitor Mode: External Duration (sec)2399: 50-90 Pattern: Normal: <= 5 Contractions in 10 Minutes Resting Tone Obion: Relaxed Heart Rate FHR Baseline Rate: 140 Monitor Mode: External US Variability: Moderate 6-25 bpm Accelerations: 15X15 Decelerations: None Category: Category I Pain Assessment Pain Scale: 5 Pain Presence: Intermittent Pain Type: Cramping Pain Relief Measures: Comfort Measures Pain Assessment Comments: RIGHT HIP SIDE Datetime: 03/25/2017 17:54 Vaginal Exam Dilatation (cms): 1.0 Exam By: DR. DELSHAD Datetime: 03/25/2017 17:00 Labor Evaluation Frequency: IRREG Monitor Mode: External Duration (sec)2399: 60-120 Pattern: Normal: <= 5 Contractions in 10 Minutes Resting Tone Obion: Relaxed Heart Rate FHR Baseline Rate: 150 Monitor Mode: External US Variability: Moderate 6-25 bpm Accelerations: 15X15 Decelerations: None Category: Category I Datetime: 03/25/2017 16:00 Labor Evaluation Frequency: IRREG Monitor Mode: External Duration (sec)2399: 60-90 Pattern: Normal: <= 5 Contractions in 10 Minutes Resting Tone Obion: Relaxed Heart Rate FHR Baseline Rate: 140 Monitor Mode: External US Variability: Moderate 6-25 bpm Accelerations: 15X15 Decelerations: None Category: Category I Datetime: 03/25/2017 15:37 Pain Assessment Pain Scale: 5 Pain Presence: Intermittent Pain Type: Contraction Pain Location: Abdomen; Back Pain Relief Measures: Comfort Measures Pain Assessment Comments: right side of hip Datetime: 03/25/2017 14:59 Labor Evaluation Frequency: irreg Monitor Mode: External Duration (sec)2399: 50-120 Pattern: Normal: <= 5 Contractions in 10 Minutes Resting Tone Obion: Relaxed Heart Rate FHR Baseline Rate: 140 Monitor Mode: External US Variability: Moderate 6-25 bpm Accelerations: 15X15 Decelerations: None Category: Category I Datetime: 03/25/2017 14:03 Labor Evaluation Frequency: IRREG Monitor Mode: External Duration (sec)2399: 30-90 Pattern: Normal: <= 5 Contractions in 10 Minutes Resting Tone Obion: Relaxed Heart Rate FHR Baseline Rate: 140 Monitor Mode: External US FHR Baseline Changes: No Baseline Change Variability: Moderate 6-25 bpm Accelerations: 15X15 Decelerations: None Category: Category I Datetime: 03/25/2017 13:00 Stage of : Labor Maternal Assessment Level of Consciousness: Fully Conscious Labor Evaluation Frequency: 3uc/hr Monitor Mode: External Duration (sec)2399: 50-80 Quality: Mild Pattern: Normal: <= 5 Contractions in 10 Minutes Resting Tone Obion: Relaxed Heart Rate FHR Baseline Rate: 140 Monitor Mode: External US Variability: Moderate 6-25 bpm Accelerations: 15X15 Decelerations: None Pain Assessment Pain Scale: 5 Pain Presence: Constant Pain Type: Ache Pain Location: Right Hip Pain Goal: 3 Pain Relief Measures: Comfort Measures Membrane Status: Intact Vaginal Bleeding: None Datetime: 03/25/2017 12:00 Stage of : Labor Maternal Assessment Level of Consciousness: Fully Conscious Labor Evaluation Frequency: 3uc/hr Monitor Mode: External Duration (sec)2399: 50-80 Quality: Mild Pattern: Normal: <= 5 Contractions in 10 Minutes Resting Tone Obion: Relaxed Heart Rate FHR Baseline Rate: 140 Monitor Mode: External US Variability: Moderate 6-25 bpm Accelerations: 15X15 Decelerations: None Category: Category I Pain Assessment Pain Scale: 5 Pain Presence: Constant Pain Type: Ache Pain Location: Right Hip Pain Goal: 3 Pain Relief Measures: Comfort Measures Membrane Status: Intact Vaginal Bleeding: None Datetime: 03/25/2017 10:00 Stage of : Labor Maternal Assessment Level of Consciousness: Fully Conscious Labor Evaluation Frequency: 2uc/hr Monitor Mode: External Duration (sec)2399: 50-110 Quality: Mild Pattern: Normal: <= 5 Contractions in 10 Minutes Resting Tone Obion: Relaxed Heart Rate FHR Baseline Rate: 130 Monitor Mode: External US Variability: Moderate 6-25 bpm Accelerations: 15X15 Decelerations: Variable Category: Category II Pain Assessment Pain Scale: 5 Pain Presence: Constant Pain Type: Ache Pain Location: Right Hip Pain Goal: 3 Pain Relief Measures: Comfort Measures Pain Assessment Comments: PT DENIES FEELING UC'S. Membrane Status: Intact Vaginal Bleeding: None Datetime: 03/25/2017 09:01 Labor Evaluation Frequency: 2-7 Monitor Mode: External Duration (sec)2399: 60-120 Pattern: Normal: <= 5 Contractions in 10 Minutes Resting Tone Obion: Relaxed Heart Rate FHR Baseline Rate: 130 Monitor Mode: External US Variability: Moderate 6-25 bpm Accelerations: 15X15 Decelerations: None Category: Category I Datetime: 03/25/2017 07:30 Labor Evaluation Frequency: IRREG Monitor Mode: External Duration (sec)2399: 60-120 Pattern: Normal: <= 5 Contractions in 10 Minutes Resting Tone Obion: Relaxed Heart Rate FHR Baseline Rate: 135 Monitor Mode: External US Variability: Moderate 6-25 bpm Accelerations: 15X15 Decelerations: None Category: Category I Pain Assessment Pain Scale: 8 Pain Presence: Intermittent Pain Type: Contraction Pain Location: Abdomen Pain Relief Measures: Comfort Measures Datetime: 03/25/2017 07:29 Assessment Type: Ongoing Assessment Maternal Assessment Level of Consciousness: Fully Conscious DTR's/Clonus: DTRs 2+; No Clonus Headache: Denies Blurred Vision: No Respiratory Effort: Unlabored; Regular Rhythm; Equal Expansion Breath Sounds, Left: Clear and Equal Breath Sounds, Right: Clear and Equal Nausea/Vomiting: Denies RUQ Epigastric Pain: Denies Lower Extremities Edema: None Degree: None Upper Extremities Edema: None Degree: None Facial Edema: None Fall Risk Assessment History of Falling: (0) No Secondary Diagnosis: (0) No Ambulatory Aid: (0) Bedrest/Nurse Assist IV Therapy: (20) Yes Gait: (0) Normal/Bedrest/Immobile Mental Status: (0) Oriented to Own Ability Fall Score: 20 Fall Risk Score Definition: No Risk: No action required Datetime: 03/25/2017 07:00 Labor Evaluation Frequency: x2 Monitor Mode: External Duration (sec)2399: 40-60 Quality: Moderate Pattern: Normal: <= 5 Contractions in 10 Minutes Resting Tone Obion: Relaxed Heart Rate FHR Baseline Rate: 135 Monitor Mode: External US FHR Baseline Changes: No Baseline Change Variability: Moderate 6-25 bpm Accelerations: 15X15 Decelerations: None Category: Category I Datetime: 03/25/2017 06:49 Monitor Mode: External Monitor Mode: External US Datetime: 03/25/2017 06:00 Labor Evaluation Frequency: X4 Monitor Mode: External Duration (sec)2399: 40-70 Quality: Moderate Pattern: Normal: <= 5 Contractions in 10 Minutes Resting Tone Obion: Relaxed Heart Rate FHR Baseline Rate: 135 Monitor Mode: External US FHR Baseline Changes: No Baseline Change Variability: Moderate 6-25 bpm Accelerations: 15X15 Decelerations: None Category: Category I Datetime: 03/25/2017 05:57 Monitor Mode: External Monitor Mode: External US Datetime: 03/25/2017 05:00 Labor Evaluation Frequency: X1 Monitor Mode: External Duration (sec)2399: 80 Quality: Moderate Pattern: Normal: <= 5 Contractions in 10 Minutes Resting Tone Obion: Relaxed Heart Rate FHR Baseline Rate: 135 Monitor Mode: External US Variability: Moderate 6-25 bpm Accelerations: 15X15 Decelerations: None Category: Category I Datetime: 03/25/2017 04:00 Labor Evaluation Frequency: x4 Monitor Mode: External Duration (sec)2399: 60-80 Quality: Mild Pattern: Normal: <= 5 Contractions in 10 Minutes Resting Tone Obion: Relaxed Heart Rate FHR Baseline Rate: 145 Monitor Mode: External US FHR Baseline Changes: No Baseline Change Variability: Moderate 6-25 bpm Accelerations: 15X15 Decelerations: None Category: Category I Datetime: 03/25/2017 03:00 Labor Evaluation Frequency: x1 Monitor Mode: External Duration (sec)2399: 60 Quality: Mild Pattern: Normal: <= 5 Contractions in 10 Minutes Resting Tone Obion: Relaxed Heart Rate FHR Baseline Rate: 135 Monitor Mode: External US FHR Baseline Changes: No Baseline Change Variability: Moderate 6-25 bpm Accelerations: 15X15 Decelerations: None Category: Category I Datetime: 03/25/2017 01:59 Labor Evaluation Frequency: 3-7 Monitor Mode: External Duration (sec)2399: 40-90 Quality: Moderate Pattern: Normal: <= 5 Contractions in 10 Minutes Resting Tone Obion: Relaxed Interventions: Side to Side Heart Rate FHR Baseline Rate: 140 Monitor Mode: External US FHR Baseline Changes: No Baseline Change Variability: Moderate 6-25 bpm Accelerations: 15X15 Decelerations: Variable Category: Category II Datetime: 03/25/2017 01:15 Monitor Mode: External Interventions: Side to Side Monitor Mode: External US Decelerations: Variable Datetime: 03/25/2017 01:00 Labor Evaluation Frequency: 4-8 Monitor Mode: External Duration (sec)2399: 40-80 Quality: Moderate Pattern: Normal: <= 5 Contractions in 10 Minutes Resting Tone Obion: Relaxed Heart Rate FHR Baseline Rate: 140 Monitor Mode: External US FHR Baseline Changes: No Baseline Change Variability: Moderate 6-25 bpm Accelerations: 15X15 Decelerations: None Category: Category I Datetime: 03/25/2017 00:50 Stage of : Labor Labor Evaluation Frequency: IRREGULAR Monitor Mode: External Duration (sec)2399: 60-110 Quality: Moderate Resting Tone Obion: Relaxed Heart Rate FHR Baseline Rate: 140 Monitor Mode: External US Variability: Moderate 6-25 bpm Accelerations: 15X15 Decelerations: None Datetime: 03/25/2017 00:03 Labor Evaluation Frequency: 3-11 Monitor Mode: External Duration (sec)2399: 70-90 Quality: Moderate Pattern: Normal: <= 5 Contractions in 10 Minutes Resting Tone Obion: Relaxed Heart Rate FHR Baseline Rate: 140 Monitor Mode: External US FHR Baseline Changes: No Baseline Change Variability: Moderate 6-25 bpm Accelerations: 15X15 Decelerations: None Category: Category I Datetime: 03/24/2017 23:50 Stage of : Labor Labor Evaluation Frequency: IRREG Monitor Mode: External Duration (sec)2399: 30-50 Quality: Mild Pattern: Normal: <= 5 Contractions in 10 Minutes Resting Tone Obion: Relaxed Heart Rate FHR Baseline Rate: 150 Monitor Mode: External US Variability: Moderate 6-25 bpm Accelerations: 15X15 Decelerations: None Category: Category I Datetime: 03/24/2017 23:00 Labor Evaluation Frequency: 3-11 Monitor Mode: External Duration (sec)2399: 40-110 Quality: Moderate Pattern: Normal: <= 5 Contractions in 10 Minutes Resting Tone Obion: Relaxed Heart Rate FHR Baseline Rate: 140 Monitor Mode: External US FHR Baseline Changes: No Baseline Change Variability: Moderate 6-25 bpm Accelerations: 15X15 Decelerations: None Category: Category I Datetime: 03/24/2017 22:00 Labor Evaluation Frequency: 2-7 Monitor Mode: External Duration (sec)2399: 40-100 Quality: Moderate Pattern: Normal: <= 5 Contractions in 10 Minutes Resting Tone Obion: Relaxed Heart Rate FHR Baseline Rate: 145 Monitor Mode: External US FHR Baseline Changes: No Baseline Change Variability: Moderate 6-25 bpm Accelerations: 15X15 Decelerations: Early Category: Category I Datetime: 03/24/2017 20:58 Labor Evaluation Frequency: 5-9 Monitor Mode: External Duration (sec)2399: 40-80 Quality: Moderate Pattern: Normal: <= 5 Contractions in 10 Minutes Resting Tone Obion: Relaxed Heart Rate FHR Baseline Rate: 150 Monitor Mode: External US FHR Baseline Changes: No Baseline Change Variability: Moderate 6-25 bpm Accelerations: 15X15 Decelerations: None Category: Category I Datetime: 03/24/2017 20:00 Labor Evaluation Frequency: 1 AT 1905 Monitor Mode: External Duration (sec)2399: 70 Quality: Moderate Pattern: Normal: <= 5 Contractions in 10 Minutes Resting Tone Obion: Relaxed Heart Rate FHR Baseline Rate: 150 Monitor Mode: External US Variability: Moderate 6-25 bpm Accelerations: 15X15 Decelerations: None Category: Category I Datetime: 03/24/2017 19:11 Assessment Type: Ongoing Assessment Maternal Assessment Level of Consciousness: Fully Conscious DTR's/Clonus: DTRs 2+; No Clonus Headache: Denies Blurred Vision: No Respiratory Effort: Unlabored; Regular Rhythm; Equal Expansion Breath Sounds, Left: Clear and Equal Breath Sounds, Right: Clear and Equal Nausea/Vomiting: Denies RUQ Epigastric Pain: Denies Lower Extremities Edema: Bilateral Lower Extremities Degree: 1+ Upper Extremities Edema: Bilateral Upper Extremities Degree: 1+ Facial Edema: None Fall Risk Assessment History of Falling: (0) No Secondary Diagnosis: (0) No Ambulatory Aid: (0) Bedrest/Nurse Assist Gait: (0) Normal/Bedrest/Immobile Mental Status: (0) Oriented to Own Ability Datetime: 03/24/2017 19:08 Stage of : Labor Temperature Route: Oral Pain Assessment Pain Scale: 7 Pain Presence: Intermittent Pain Type: Contraction Pain Location: Abdomen Pain Goal: 0 Pain Relief Measures: Comfort Measures Datetime: 03/24/2017 18:59 Labor Evaluation Frequency: occ Monitor Mode: External Duration (sec)2399: 60 Quality: Mild Pattern: Normal: <= 5 Contractions in 10 Minutes Resting Tone Obion: Relaxed Heart Rate FHR Baseline Rate: 145 Monitor Mode: External US Variability: Moderate 6-25 bpm Accelerations: 15X15 Decelerations: None Category: Category I Pain Assessment Pain Scale: 8 Pain Presence: Constant Pain Type: Dull Pain Assessment Comments: right side abdominal Datetime: 03/24/2017 17:59 Labor Evaluation Frequency: occ Monitor Mode: External Duration (sec)2399: 60 Quality: Mild Pattern: Normal: <= 5 Contractions in 10 Minutes Resting Tone Obion: Relaxed Heart Rate FHR Baseline Rate: 145 Monitor Mode: External US Variability: Moderate 6-25 bpm Accelerations: 15X15 Decelerations: None Category: Category I Datetime: 03/24/2017 17:00 Pattern: Normal: <= 5 Contractions in 10 Minutes Contraction Comments: deny uc Heart Rate FHR Baseline Rate: 145 Monitor Mode: External US Variability: Moderate 6-25 bpm Accelerations: 15X15 Decelerations: None Category: Category I Pain Assessment Comments: right side of abdominal Datetime: 03/24/2017 16:00 Labor Evaluation Frequency: OCC Monitor Mode: External Duration (sec)2399: 50-60 Quality: Mild Pattern: Normal: <= 5 Contractions in 10 Minutes Resting Tone Obion: Relaxed Heart Rate FHR Baseline Rate: 145 Monitor Mode: External US Variability: Moderate 6-25 bpm Accelerations: 15X15 Decelerations: None Category: Category I Datetime: 03/24/2017 15:05 Comments: varible noted, reposition pt Datetime: 03/24/2017 15:01 Labor Evaluation Frequency: occ Monitor Mode: External Duration (sec)2399: 50-60 Quality: Mild Pattern: Normal: <= 5 Contractions in 10 Minutes Resting Tone Obion: Relaxed Heart Rate FHR Baseline Rate: 145 Monitor Mode: External US Variability: Moderate 6-25 bpm Accelerations: 15X15 Decelerations: None Category: Category I Pain Assessment Pain Scale: 8 Pain Presence: Constant Pain Type: Dull Pain Location: Abdomen Pain Goal: 3 Pain Assessment Comments: right side of abdominal Datetime: 03/24/2017 14:01 Labor Evaluation Frequency: OCC Monitor Mode: External Duration (sec)2399: 60 Quality: Mild Pattern: Normal: <= 5 Contractions in 10 Minutes Resting Tone Obion: Relaxed Heart Rate FHR Baseline Rate: 155 Monitor Mode: External US Variability: Moderate 6-25 bpm Accelerations: 15X15 Decelerations: Variable Category: Category II Pain Assessment Pain Scale: 8 Pain Presence: Constant Pain Type: Dull Pain Location: Abdomen Pain Goal: 3 Pain Assessment Comments: right side of abdominal Datetime: 03/24/2017 13:01 Labor Evaluation Frequency: occ Monitor Mode: External Duration (sec)2399: 60 Quality: Mild Pattern: Normal: <= 5 Contractions in 10 Minutes Resting Tone Obion: Relaxed Heart Rate FHR Baseline Rate: 145 Monitor Mode: External US Variability: Moderate 6-25 bpm Accelerations: 15X15 Decelerations: None Category: Category I Pain Assessment Pain Scale: 8 Pain Presence: Intermittent Pain Type: Dull Pain Location: Abdomen Pain Goal: 3 Datetime: 03/24/2017 12:58 Vaginal Exam Dilatation (cms): 1.0 Exam By: DR.DELSHAD Datetime: 03/24/2017 12:01 Labor Evaluation Frequency: OCC Monitor Mode: External Duration (sec)2399: 60 Quality: Mild Pattern: Normal: <= 5 Contractions in 10 Minutes Resting Tone Obion: Relaxed Heart Rate FHR Baseline Rate: 135 Monitor Mode: External US Variability: Moderate 6-25 bpm Accelerations: 15X15 Decelerations: None Category: Category I Pain Assessment Pain Scale: 8 Pain Presence: Intermittent Pain Type: Contraction Pain Location: Abdomen; Back Pain Goal: 3 Datetime: 03/24/2017 11:00 Labor Evaluation Frequency: OCC Monitor Mode: External Duration (sec)2399: 50-60 Quality: Mild Pattern: Normal: <= 5 Contractions in 10 Minutes Resting Tone Obion: Relaxed Heart Rate FHR Baseline Rate: 135 Monitor Mode: External US Variability: Moderate 6-25 bpm Accelerations: 15X15 Decelerations: None Category: Category I Pain Assessment Pain Scale: 8 Pain Presence: Intermittent Pain Location: Abdomen; Back Pain Goal: 3 Datetime: 03/24/2017 09:57 Labor Evaluation Frequency: OCC Monitor Mode: External Duration (sec)2399: 50-60 Quality: Mild Pattern: Normal: <= 5 Contractions in 10 Minutes Resting Tone Obion: Relaxed Heart Rate FHR Baseline Rate: 145 Monitor Mode: External US Variability: Moderate 6-25 bpm Accelerations: 15X15 Decelerations: None Category: Category I Pain Assessment Pain Scale: 8 Pain Presence: Intermittent Pain Type: Contraction Pain Location: Abdomen Pain Goal: 3 Datetime: 03/24/2017 09:54 Vaginal Exam Dilatation (cms): 2.0 Effacement (%): 50 Station: -3 Exam By: WLIU Datetime: 03/24/2017 09:01 Labor Evaluation Frequency: OCC Monitor Mode: External Duration (sec)2399: 60 Quality: Mild Pattern: Normal: <= 5 Contractions in 10 Minutes Resting Tone Obion: Relaxed Heart Rate FHR Baseline Rate: 145 Monitor Mode: External US Variability: Moderate 6-25 bpm Accelerations: 15X15 Decelerations: None Category: Category I Pain Assessment Pain Scale: 8 Pain Presence: Intermittent Pain Type: Contraction Pain Location: Abdomen; Back Pain Goal: 3 Datetime: 03/24/2017 08:01 Labor Evaluation Frequency: OCC Monitor Mode: External Duration (sec)2399: 50-60 Quality: Mild Pattern: Normal: <= 5 Contractions in 10 Minutes Resting Tone Obion: Relaxed Heart Rate FHR Baseline Rate: 135 Monitor Mode: External US Variability: Moderate 6-25 bpm Accelerations: 15X15 Decelerations: None Category: Category I Pain Assessment Pain Scale: 9 Pain Presence: Intermittent Pain Type: Contraction Pain Location: Abdomen Pain Goal: 3 Datetime: 03/24/2017 07:28 Assessment Type: Ongoing Assessment Maternal Assessment Level of Consciousness: Fully Conscious DTR's/Clonus: DTRs 2+; No Clonus Headache: Denies Blurred Vision: No Respiratory Effort: Unlabored; Regular Rhythm; Equal Expansion Breath Sounds, Left: Clear and Equal Breath Sounds, Right: Clear and Equal Nausea/Vomiting: Denies RUQ Epigastric Pain: Denies Lower Extremities Edema: None Degree: None Upper Extremities Edema: None Degree: None Facial Edema: None Fall Risk Assessment History of Falling: (25) Yes Secondary Diagnosis: (0) No Ambulatory Aid: (0) Bedrest/Nurse Assist IV Therapy: (20) Yes Gait: (0) Normal/Bedrest/Immobile Mental Status: (0) Oriented to Own Ability Fall Score: 45 Fall Risk Score Definition: Low Risk: Please see standard fall prevention interventions Datetime: 03/24/2017 07:00 Labor Evaluation Frequency: x4 Monitor Mode: External Duration (sec)2399: 60-120 Quality: Mild Pattern: Normal: <= 5 Contractions in 10 Minutes Resting Tone Obion: Relaxed Heart Rate FHR Baseline Rate: 135 Monitor Mode: External US FHR Baseline Changes: No Baseline Change Variability: Moderate 6-25 bpm Accelerations: 15X15 Decelerations: None Category: Category I Datetime: 03/24/2017 06:58 Resting Tone Obion: Relaxed Datetime: 03/24/2017 06:22 Pain Assessment Pain Scale: 9 Pain Presence: Intermittent Pain Type: Contraction Pain Location: Abdomen; Back Pain Goal: 9 Pain Relief Measures: Comfort Measures Datetime: 03/24/2017 06:00 Labor Evaluation Frequency: x4 Monitor Mode: External Duration (sec)2399: 60-80 Quality: Mild Pattern: Normal: <= 5 Contractions in 10 Minutes Resting Tone Obion: Relaxed Heart Rate FHR Baseline Rate: 145 Monitor Mode: External US FHR Baseline Changes: No Baseline Change Variability: Moderate 6-25 bpm Accelerations: 15X15 Decelerations: None Category: Category I Datetime: 03/24/2017 05:38 Pain Assessment Pain Scale: 0 Pain Presence: None/Denies Pain Type: N/A Datetime: 03/24/2017 05:00 Labor Evaluation Frequency: x3; irregular Monitor Mode: External Duration (sec)2399: 50-80 Quality: Mild Pattern: Normal: <= 5 Contractions in 10 Minutes Resting Tone Obion: Relaxed Heart Rate FHR Baseline Rate: 135 Monitor Mode: External US FHR Baseline Changes: No Baseline Change Variability: Moderate 6-25 bpm Accelerations: 15X15 Decelerations: Variable Category: Category II Datetime: 03/24/2017 04:00 Labor Evaluation Frequency: x2; occasional Monitor Mode: External Duration (sec)2399: 60-80 Quality: Mild Pattern: Normal: <= 5 Contractions in 10 Minutes Resting Tone Obion: Relaxed Heart Rate FHR Baseline Rate: 145 Monitor Mode: External US FHR Baseline Changes: No Baseline Change Variability: Moderate 6-25 bpm Accelerations: 15X15 Decelerations: None Category: Category I Datetime: 03/24/2017 03:06 Pain Assessment Pain Scale: 8 Pain Presence: Intermittent Pain Type: Contraction Pain Location: Abdomen Pain Goal: 8 Pain Relief Measures: Comfort Measures Pain Assessment Comments: Pt states that pain level with contraction is the same. Datetime: 03/24/2017 03:00 Labor Evaluation Frequency: x4 Monitor Mode: External Duration (sec)2399: 60-100 Quality: Mild Pattern: Normal: <= 5 Contractions in 10 Minutes Resting Tone Obion: Relaxed Heart Rate FHR Baseline Rate: 135 Monitor Mode: External US FHR Baseline Changes: No Baseline Change Variability: Moderate 6-25 bpm Accelerations: 15X15 Decelerations: None Category: Category I Datetime: 03/24/2017 02:00 Labor Evaluation Frequency: 8-8.5; irregular Monitor Mode: External Duration (sec)2399: 60-90 Quality: Mild Pattern: Normal: <= 5 Contractions in 10 Minutes Resting Tone Obion: Relaxed Heart Rate FHR Baseline Rate: 135 Monitor Mode: External US FHR Baseline Changes: No Baseline Change Variability: Moderate 6-25 bpm Accelerations: 15X15 Decelerations: None Category: Category I Datetime: 03/24/2017 01:00 Labor Evaluation Frequency: x2 Monitor Mode: External Duration (sec)2399: 80-90 Quality: Mild Pattern: Normal: <= 5 Contractions in 10 Minutes Resting Tone Obion: Relaxed Heart Rate FHR Baseline Rate: 145 Monitor Mode: External US FHR Baseline Changes: No Baseline Change Variability: Moderate 6-25 bpm Accelerations: 10X10 Decelerations: None Category: Category I Datetime: 03/24/2017 00:49 Vaginal Exam Dilatation (cms): 2.0 Effacement (%): 70 Station: -2 Exam By: MG Datetime: 03/24/2017 00:40 Labor Evaluation Frequency: x1 Monitor Mode: External Duration (sec)2399: 80 Quality: Mild Pattern: Normal: <= 5 Contractions in 10 Minutes Resting Tone [place]: Relaxed Heart Rate FHR Baseline Rate: 150 Monitor Mode: External US FHR Baseline Changes: No Baseline Change Variability: Moderate 6-25 bpm Accelerations: 10X10 Decelerations: None Category: Category I Comments: pre-epidural stop Pain Assessment Pain Scale: 8 Pain Presence: Intermittent Pain Type: Contraction Pain Location: Abdomen Pain Goal: 8 Pain Relief Measures: Comfort Measures Pain Assessment Comments: Pt states she feels no pain at this time but that she feels 8/10 pain wi th contractions. Datetime: 03/24/2017 00:00 Labor Evaluation Frequency: x1 Monitor Mode: External Duration (sec)2399: 50 Quality: Mild Pattern: Normal: <= 5 Contractions in 10 Minutes Resting Tone [place]: Relaxed Contraction Comments: FHR/UC [id number] Heart Rate FHR Baseline Rate: 145 Monitor Mode: External US FHR Baseline Changes: No Baseline Change Variability: Moderate 6-25 bpm Accelerations: 10X10 Decelerations: None Category: Category I Datetime: 03/23/2017 22:30 Labor Evaluation Frequency: x2 Monitor Mode: External Duration (sec)2399: 60-80 Quality: Mild Pattern: Normal: <= 5 Contractions in 10 Minutes Resting Tone [place]: Relaxed Heart Rate FHR Baseline Rate: 135 Monitor Mode: External US FHR Baseline Changes: No Baseline Change Variability: Moderate 6-25 bpm Accelerations: 15X15 Decelerations: Variable Category: Category II Datetime: 03/23/2017 21:30 Labor Evaluation Frequency: x1 Monitor Mode: External Duration (sec)2399: 70 Quality: Mild Pattern: Normal: <= 5 Contractions in 10 Minutes Resting Tone [place]: Relaxed Heart Rate FHR Baseline Rate: 155 Monitor Mode: External US FHR Baseline Changes: No Baseline Change Variability: Moderate 6-25 bpm Accelerations: 15X15 Decelerations: None Category: Category I Datetime: 03/23/2017 20:30 Labor Evaluation Frequency: X3 Monitor Mode: External Duration (sec)2399: 70-80 Quality: Mild Pattern: Normal: <= 5 Contractions in 10 Minutes Resting Tone [place]: Relaxed Heart Rate FHR Baseline Rate: 145 Monitor Mode: External US FHR Baseline Changes: No Baseline Change Variability: Moderate 6-25 bpm Accelerations: 15X15 Decelerations: Variable Category: Category II Datetime: 03/23/2017 19:30 Labor Evaluation Frequency: Occasional Monitor Mode: External Duration (sec)2399: 60 Quality: Mild Pattern: Normal: <= 5 Contractions in 10 Minutes Resting Tone [place]: Relaxed Heart Rate FHR Baseline Rate: 145 Monitor Mode: External US FHR Baseline Changes: No Baseline Change Variability: Moderate 6-25 bpm Accelerations: 15X15 Decelerations: None Category: Category I Datetime: 03/23/2017 19:25 Assessment Type: Ongoing Assessment Maternal Assessment Level of Consciousness: Fully Conscious DTR's/Clonus: DTRs 2+; No Clonus Headache: Denies Blurred Vision: No Respiratory Effort: Unlabored; Regular Rhythm; Equal Expansion Breath Sounds, Left: Clear and Equal Breath Sounds, Right: Clear and Equal Nausea/Vomiting: Denies RUQ Epigastric Pain: Denies Lower Extremities Edema: None Degree: None Upper Extremities Edema: None Degree: None Facial Edema: None Fall Risk Assessment History of Falling: (25) Yes (Annotations: Pt was admitted d/t falling down) Secondary Diagnosis: (0) No Ambulatory Aid: (0) Bedrest/Nurse Assist IV Therapy: (20) Yes Gait: (0) Normal/Bedrest/Immobile Mental Status: (0) Oriented to Own Ability Fall Score: 45 Fall Risk Score Definition: Low Risk: Please see standard fall prevention interventions Datetime: 03/23/2017 19:22 Temperature Route: Oral Pain Assessment Pain Scale: 0 Pain Presence: Intermittent Pain Type: Contraction Pain Location: Abdomen Pain Goal: 0 Pain Relief Measures: Comfort Measures Pain Assessment Comments: Pt states she feels UCs but no pain. Datetime: 03/23/2017 18:41 Labor Evaluation Frequency: OCC Monitor Mode: External Quality: Mild Pattern: Normal: <= 5 Contractions in 10 Minutes Resting Tone [place]: Relaxed Heart Rate FHR Baseline Rate: 145 Monitor Mode: External US FHR Baseline Changes: No Baseline Change Variability: Moderate 6-25 bpm Accelerations: 15X15 Decelerations: None Category: Category I Pain Presence: None/Denies Datetime: 03/23/2017 17:39 Labor Evaluation Frequency: OCC Monitor Mode: External Quality: Mild Pattern: Normal: <= 5 Contractions in 10 Minutes Resting Tone [place]: Relaxed Heart Rate FHR Baseline Rate: 140 Monitor Mode: External US FHR Baseline Changes: No Baseline Change Variability: Moderate 6-25 bpm Accelerations: 15X15 Decelerations: None Category: Category I Pain Presence: None/Denies Datetime: 03/23/2017 17:15 Stage of : Labor Datetime: 03/23/2017 17:00 Stage of : Antepartum Labor Evaluation Frequency: 3-7 Monitor Mode: External Duration (sec)2399: 60-70 Quality: Mild Pattern: Normal: <= 5 Contractions in 10 Minutes Resting Tone [place]: Relaxed Heart Rate FHR Baseline Rate: 140 Monitor Mode: External US FHR Baseline Changes: No Baseline Change Variability: Moderate 6-25 bpm Accelerations: 15X15 Decelerations: None Category: Category I Pain Presence: None/Denies Datetime: 03/23/2017 16:00 Labor Evaluation Frequency: 3-755-70 Monitor Mode: External Quality: Mild Pattern: Normal: <= 5 Contractions in 10 Minutes Resting Tone [place]: Relaxed Heart Rate FHR Baseline Rate: 140 Monitor Mode: External US FHR Baseline Changes: No Baseline Change Variability: Moderate 6-25 bpm Accelerations: 15X15 Decelerations: None Category: Category I Pain Presence: None/Denies Datetime: 03/23/2017 15:28 Stage of : Labor Labor Evaluation Frequency: 2.5-6 Monitor Mode: External Duration (sec)2399: 45-60 Quality: Mild Pattern: Normal: <= 5 Contractions in 10 Minutes Resting Tone [place]: Relaxed Heart Rate FHR Baseline Rate: 145 Monitor Mode: External US FHR Baseline Changes: No Baseline Change Variability: Moderate 6-25 bpm Accelerations: 15X15 Decelerations: None Category: Category I Pain Presence: Intermittent Pain Type: Ache Pain Location: Right Hip Pain Relief Measures: Comfort Measures Datetime: 03/23/2017 14:53 Pain Assessment Comments: EPIDURAL RESTARTED. Datetime: 03/23/2017 14:30 Labor Evaluation Frequency: 2.5-6 Monitor Mode: External Duration (sec)2399: 45-60 Quality: Mild Pattern: Normal: <= 5 Contractions in 10 Minutes Resting Tone [place]: Relaxed Heart Rate FHR Baseline Rate: 145 Monitor Mode: External US FHR Baseline Changes: No Baseline Change Variability: Moderate 6-25 bpm Accelerations: 15X15 Decelerations: None Category: Category I Pain Presence: Intermittent Pain Type: Ache Pain Location: Right Hip Pain Relief Measures: Comfort Measures Datetime: 03/23/2017 13:30 Stage of : Labor Maternal Assessment Level of Consciousness: Fully Conscious Labor Evaluation Frequency: irregular Monitor Mode: External Duration (sec)2399: 45-70 Quality: Mild Pattern: Normal: <= 5 Contractions in 10 Minutes Resting Tone [place]: Relaxed Heart Rate FHR Baseline Rate: 135 Monitor Mode: External US FHR Baseline Changes: No Baseline Change Variability: Moderate 6-25 bpm Accelerations: 15X15 Decelerations: None Category: Category I Datetime: 03/23/2017 13:05 Vaginal Exam Dilatation (cms): 2.0 Effacement (%): 70 Station: -2 Exam By: MJ Datetime: 03/23/2017 12:30 Stage of : Labor Maternal Assessment Level of Consciousness: Fully Conscious Labor Evaluation Frequency: 3-5 Monitor Mode: External Duration (sec)2399: 45-70 Quality: Mild Pattern: Normal: <= 5 Contractions in 10 Minutes Resting Tone [place]: Relaxed Heart Rate FHR Baseline Rate: 135 Monitor Mode: External US FHR Baseline Changes: No Baseline Change Variability: Moderate 6-25 bpm Accelerations: 15X15 Decelerations: None Category: Category I Datetime: 03/23/2017 11:30 Stage of : Labor Maternal Assessment Level of Consciousness: Fully Conscious Labor Evaluation Frequency: 3-5 Monitor Mode: External Duration (sec)2399: 45-70 Quality: Mild Pattern: Normal: <= 5 Contractions in 10 Minutes Resting Tone [place]: Relaxed Heart Rate FHR Baseline Rate: 135 Monitor Mode: External US FHR Baseline Changes: No Baseline Change Variability: Moderate 6-25 bpm Accelerations: 15X15 Decelerations: None Category: Category I Datetime: 03/23/2017 10:30 Stage of : Labor Maternal Assessment Level of Consciousness: Fully Conscious Labor Evaluation Frequency: IRREGULAR Monitor Mode: External Duration (sec)2399: 45-70 Quality: Mild Pattern: Normal: <= 5 Contractions in 10 Minutes Resting Tone [place]: Relaxed Heart Rate FHR Baseline Rate: 135 Monitor Mode: External US FHR Baseline Changes: No Baseline Change Variability: Moderate 6-25 bpm Accelerations: 15X15 Decelerations: None Category: Category I Datetime: 03/23/2017 09:30 Stage of : Labor Maternal Assessment Level of Consciousness: Fully Conscious DTR's/Clonus: DTRs 1+ Labor Evaluation Frequency: 2-5 Monitor Mode: External Duration (sec)2399: 45-70 Quality: Mild Pattern: Normal: <= 5 Contractions in 10 Minutes Resting Tone [place]: Relaxed Heart Rate FHR Baseline Rate: 135 Monitor Mode: External US FHR Baseline Changes: No Baseline Change Variability: Moderate 6-25 bpm Accelerations: 15X15 Decelerations: None Datetime: 03/23/2017 08:48 Vaginal Exam Dilatation (cms): 2.0 Effacement (%): 70 Station: -2 Exam By: DR LINDSAY Datetime: 03/23/2017 08:30 Labor Evaluation Frequency: IRREGULAR Monitor Mode: External Duration (sec)2399: 45-70 Quality: Mild Pattern: Normal: <= 5 Contractions in 10 Minutes Resting Tone [place]: Relaxed Heart Rate FHR Baseline Rate: 135 Monitor Mode: External US FHR Baseline Changes: No Baseline Change Variability: Moderate 6-25 bpm Accelerations: 15X15 Decelerations: None Category: Category I Datetime: 03/23/2017 07:50 Maternal Assessment Level of Consciousness: Fully Conscious DTR's/Clonus: DTRs 1+ Headache: Denies Blurred Vision: No Nausea/Vomiting: Denies RUQ Epigastric Pain: Denies Facial Edema: None Labor Evaluation Frequency: 2.5-7 Monitor Mode: External Duration (sec)2399: 65-80 Quality: Mild Pattern: Normal: <= 5 Contractions in 10 Minutes Resting Tone [place]: Relaxed Heart Rate FHR Baseline Rate: 135 Monitor Mode: External US FHR Baseline Changes: No Baseline Change Variability: Moderate 6-25 bpm Accelerations: 15X15 Decelerations: None Category: Category I Pain Presence: None/Denies Datetime: 03/23/2017 07:12 Assessment Type: Ongoing Assessment Maternal Assessment Level of Consciousness: Fully Conscious DTR's/Clonus: DTRs 2+; No Clonus Headache: Denies Blurred Vision: No Respiratory Effort: Unlabored; Regular Rhythm; Equal Expansion Breath Sounds, Left: Clear and Equal Breath Sounds, Right: Clear and Equal Nausea/Vomiting: Denies RUQ Epigastric Pain: Denies Lower Extremities Edema: None Degree: None Upper Extremities Edema: None Degree: None Facial Edema: None Temperature Route: Oral Fall Risk Assessment History of Falling: (0) No Secondary Diagnosis: (0) No Ambulatory Aid: (0) Bedrest/Nurse Assist IV Therapy: (20) Yes Gait: (0) Normal/Bedrest/Immobile Mental Status: (0) Oriented to Own Ability Fall Score: 20 Fall Risk Score Definition: No Risk: No action required Datetime: 03/23/2017 06:57 Vaginal Exam Dilatation (cms): 3.0 Effacement (%): 70 Station: -2 Exam By: DENISSE Cervix, Consistency: Soft Datetime: 03/23/2017 06:50 Labor Evaluation Frequency: 3-4.5 Monitor Mode: External Duration (sec)2399: 60-80 Quality: Moderate Pattern: Normal: <= 5 Contractions in 10 Minutes Resting Tone [place]: Relaxed Heart Rate FHR Baseline Rate: 135 Monitor Mode: External US FHR Baseline Changes: No Baseline Change Variability: Moderate 6-25 bpm Accelerations: 15X15 Decelerations: None Category: Category I Pain Assessment Pain Scale: 0 Pain Presence: None/Denies Pain Type: N/A Pain Goal: 5 Datetime: 03/23/2017 06:33 Pain Assessment Pain Scale: 5 Pain Presence: Intermittent Pain Type: Contraction Pain Location: Abdomen Pain Goal: 5 Pain Relief Measures: Epidural Given; Comfort Measures Pain Assessment Comments: PT STATES PAIN IS DECREASING Datetime: 03/23/2017 06:09 Labor Evaluation Frequency: 2-4 Monitor Mode: External Duration (sec)2399: 60-80 Quality: Strong Pattern: Normal: <= 5 Contractions in 10 Minutes Resting Tone [place]: Relaxed Heart Rate FHR Baseline Rate: 135 Monitor Mode: External US FHR Baseline Changes: No Baseline Change Variability: Moderate 6-25 bpm Accelerations: 15X15 Decelerations: None Category: Category I Pain Assessment Pain Scale: 7 Pain Presence: Intermittent Pain Type: Contraction; Pressure Pain Location: Abdomen; Back Pain Goal: 5 Pain Relief Measures: Comfort Measures Pain Assessment Comments: PT GETTING EPIDURAL PROCEDURE Datetime: 03/23/2017 06:01 Comments: PT SITTING UP FOR EPIDURAL PLACEMENT, MONITOR HAVING DIFFICULTY TRACING FHR AND CONTRACT IONS Datetime: 03/23/2017 05:40 Monitor Mode: External US Datetime: 03/23/2017 05:12 Labor Evaluation Frequency: IRREG Monitor Mode: External Duration (sec)2399: 60-80 Quality: Moderate Pattern: Normal: <= 5 Contractions in 10 Minutes Resting Tone [place]: Relaxed Heart Rate FHR Baseline Rate: 135 Monitor Mode: External US Variability: Moderate 6-25 bpm Accelerations: 15X15 Decelerations: None Category: Category I Pain Assessment Pain Scale: 8 Pain Presence: Intermittent Pain Type: Contraction; Pressure Pain Location: Abdomen; Back Pain Goal: 5 Pain Relief Measures: Comfort Measures Pain Assessment Comments: PT REQUESTING EPIDURAL, PRE-EPIDURAL BOLUS STARTED Datetime: 03/23/2017 05:11 Monitor Mode: External Datetime: 03/23/2017 05:10 Monitor Mode: External US Datetime: 03/23/2017 05:03 Vaginal Exam Dilatation (cms): 3.0 Effacement (%): 70 Station: -2 Exam By: DENISSE Vaginal Bleeding: None Cervix, Consistency: Soft Cervix, Position: Midposition Datetime: 03/23/2017 03:00 Fall Score: 20 Fall Risk Score Definition: No Risk: No action required Datetime: 03/22/2017 21:38 EGA: 37.0 Datetime: 02/24/2017 15:14 Fall Score: 0 Fall Risk Score Definition: No Risk: No action required Datetime: 02/24/2017 15:13 EGA: 33.2 Datetime: 02/08/2017 18:32 Fall Score: 0 Fall Risk Score Definition: No Risk: No action required Datetime: 02/08/2017 18:30 EGA: 31.0 Datetime: 12/16/2016 11:41 Fall Score: 0 Fall Risk Score Definition: No Risk: No action required Datetime: 12/16/2016 11:39 EGA: 23.2
[2017-04-05] MEDS ORDERED: METHYLERGONOVINE 0.2 MG INJ IM PRN (18:30)
[2017-04-05] MEDS ORDERED: LACTATED RINGER'S 1,000 ML IV PRN (18:30)
[2017-04-05] MEDS ORDERED: IBUPROFEN 600 MG TAB PO PRN (18:30)
[2017-04-05] MEDS ORDERED: LIDOCAINE 1% (MPF) 30 ML INJ INJ PRN (18:30)
[2017-04-05] MEDS ORDERED: MISOPROSTOL 200 MCG TAB PR PRN (18:30)
[2017-04-05] MEDS ORDERED: BUTORPHANOL 2 MG INJ IV PRN (18:30)
[2017-04-05] MEDS ORDERED: OXYTOCIN 30 UNITS/LR 500 ML IV SCH ×2 (18:30)
[2017-04-05] MEDS ORDERED: CARBOPROST 250 MCG INJ IM PRN (18:30)
[2017-04-05] MEDS ORDERED: OXYTOCIN 30 UNITS/LR 500 ML IV PRN (18:30)
[2017-04-05] MEDS: LACTATED RINGER'S 1,000 ML IV SCH (19:52)
[2017-04-05 19:55] VITALS: BP 107/68; PULSE 90; RESP 18
[2017-04-05 20:19] LABS: ADD SCAN DIFF NO
[2017-04-05 20:20] LABS: ABNORMAL IP MESSAGE 1; EOSINOPHILS # 0.1 10^3/ul (0.0-0.5); EOSINOPHILS % 0.7 % (0.0-7.0); HEMATOCRIT 31.4 % (37.0-47.0); HEMOGLOBIN 10.2 g/dl (12.0-16.0); LYMPHOCYTES # 1.9 10^3/ul (0.8-2.9); LYMPHOCYTES % 27.6 % (15.0-51.0); MEAN CORPUSCULAR HEMOGLOBIN 25.7 pg (29.0-33.0); MEAN CORPUSCULAR HGB CONC 32.5 g/dl (32.0-37.0); MEAN CORPUSCULAR VOLUME 79.1 fl (82.0-101.0); MEAN PLATELET VOLUME 12.8 fl (7.4-10.4); MONOCYTE # 0.4 10^3/ul (0.3-0.9); MONOCYTES % 5.7 % (0.0-11.0); NEUTROPHIL # 4.5 10^3/ul (1.6-7.5); NEUTROPHILS % 65.3 % (39.0-77.0); PLATELET COUNT 121 10^3/UL (140-415); RED BLOOD COUNT 3.97 10^6/ul (4.20-5.40); RED CELL DISTRIBUTION WIDTH 14.6 % (11.5-14.5); WHITE BLOOD COUNT 6.9 10^3/ul (4.8-10.8)
[2017-04-05 20:35] LABS: INR 0.91; PROTIME 12.3 Sec (12.2-14.2)
[2017-04-05 20:36] LABS: PARTIAL THROMBOPLASTIN TIME 24.2 Sec (25.0-35.0)
[2017-04-06] MEDS: LACTATED RINGER'S 1,000 ML IV SCH ×3 (03:08→17:50)
--- NOTE | 2017-04-06 19:55 | HP ---
Date/Time of Note Date/Time of Note DATE: 04/06/17 TIME: 19:52 OB - History Hx of Present Chief Complaint: contractions Estimated Due Date: Apr 12, 2017 : 3 Para: 1 Spontaneous : 1 Therapeutic : 0 Care: Good Care Ultrasounds: Normal mid trimester US Obstetrical Complications: None Medical Complications: None Past Family/Social History * Past Medical, Surgical, Family and Obstetric Histories reviewed from chart. GBS Status: Negative OB Admission Exam Vital Signs Vital Signs Vital Signs Date Time Temp Pulse Resp B/P Pulse Ox O2 Delivery O2 Flow Rate FiO2 04/05/17 19:55 98.1 90 18 107/68 Room Air 04/05/17 18:11 97 Physical Exam HEENT: WNL Heart: Rhythm Normal Lungs: Clear, Equal Abdomen: WNL Extremities: Normal Reflexes: Normal Cervical Dilatation: 3cm Effacement: 50% Station: -2 Membranes: Intact Heart Rate: 130's Accelerations: Accelerations Present Decelerations: No Decelerations Varibility: Moderate Last 72 hours Lab Results CBC & BMP 04/05/17 19:50 OB Assessment/Plan Reason for admission: other (early labor) Plan: Other (augmentation of labor) NEHA JAMISON MD Apr 06, 2017 19:55
[2017-04-06] MEDS ORDERED: OXYTOCIN 30 UNITS/LR 500 ML IV SCH (21:00)
[2017-04-07] MEDS ORDERED: FENTAnyl 2MCG/ML-ROPIV 0.2% 100 ML ONE (01:30)
[2017-04-07] MEDS ORDERED: NALOXONE (0.4 MG/ML) INJ IV PRN (02:30)
[2017-04-07] MEDS ORDERED: ONDANSETRON 4 MG INJ IV PRN (02:30)
[2017-04-07] MEDS ORDERED: DIPHENHYDRAMINE 50 MG INJ IV PRN (02:30)
[2017-04-07] MEDS ORDERED: FENTAnyl 2MCG/ML-ROPIV 0.2% 100 ML BAG EPI SCH (02:30)
[2017-04-07] MEDS ORDERED: HYDROmorphONE 1 MG/ML SYG IV PRN ×2 (02:30)
--- NOTE | 2017-04-07 07:04 | LDN ---
Date/Time of Note Date/Time of Note DATE: 04/07/17 TIME: 07:01 Delivery Summary Weeks of Gestation 39 weeks and 2 days Placenta Delivered: Spontaneously Episiotomy: No Perineal laceration: 2 Laceration repair: Second degree perineal and vaginal laceration repaired with 3-0 Vicryl. Anesthesia type: Epidural Estimated blood loss: 400 Sponge & Needle done & correct: Yes All needle counts correct: Yes Any foreign bodies felt in the: No Problems: Infant Delivery Information Sex Infant Sex: male Apgars 1 Minute: 8 5 Minute: 9 Suctioning Nose & mouth suctioned at nathan: Yes Delee suction performed: No Umbilical Cord Umbilical cord with: 3 Vessels Cord presentations: no nuchal cord Cord Blood was obtained: Yes Mother & Baby Disposition Disposition Mom & Baby to Maternity; Good: Yes NEHA JAMISON MD Apr 07, 2017 07:04
[2017-04-07 07:42] VITALS: BP 161/94; PULSE 117; RESP 18
[2017-04-07 07:57] VITALS: BP 122/60; PULSE 92
[2017-04-07 08:12] VITALS: BP 109/61; PULSE 81; RESP 18
[2017-04-07] MEDS ORDERED: CARBOPROST 250 MCG INJ IM PRN (08:30)
[2017-04-07] MEDS ORDERED: MISOPROSTOL 200 MCG TAB PR PRN (08:30)
[2017-04-07] MEDS ORDERED: OXYTOCIN 30 UNITS/LR 500 ML IV PRN (08:30)
[2017-04-07] MEDS ORDERED: METHYLERGONOVINE 0.2 MG INJ IM PRN (08:30)
[2017-04-07] MEDS ORDERED: DIBUCAINE 1% 30 GM OINT PR PRN (08:30)
[2017-04-07] MEDS ORDERED: ACETAMINOPHEN 325 MG TAB PO PRN (08:30)
[2017-04-07 09:00] VITALS: BP 108/72; PULSE 83; RESP 18
[2017-04-07] MEDS: SENNA/DOCUSATE NA (8.6MG/50MG) TAB PO SCH ×2 (09:00→20:45)
[2017-04-07] MEDS: WITCH HAZEL/GLYCERIN PAD PR PRN (10:58)
[2017-04-07] MEDS: BENZOCAINE 20% 56 ML SPRAY TOP PRN (10:58)
[2017-04-07] MEDS: IBUPROFEN 600 MG TAB PO SCH ×3 (14:08→23:32)
[2017-04-07 16:00] VITALS: BP 102/63; PULSE 63; RESP 17
[2017-04-07] MEDS: LACTATED RINGER'S 1,000 ML IV* SCH ×2 (16:11→16:20)
[2017-04-07 20:00] VITALS: BP 98/55; PULSE 88; RESP 18
[2017-04-08 04:00] VITALS: BP 100/55; PULSE 75; RESP 18
[2017-04-08] MEDS: IBUPROFEN 600 MG TAB PO SCH ×4 (05:57→23:35)
[2017-04-08 08:20] VITALS: BP 118/61; PULSE 92; RESP 18
[2017-04-08 08:29] LABS: ADD SCAN DIFF NO
[2017-04-08 08:36] LABS: BASOPHILS % 0.1 % (0.0-2.0); EOSINOPHILS # 0.1 10^3/ul (0.0-0.5); EOSINOPHILS % 1.5 % (0.0-7.0); HEMATOCRIT 28.3 % (37.0-47.0); HEMOGLOBIN 8.7 g/dl (12.0-16.0); LYMPHOCYTES # 1.7 10^3/ul (0.8-2.9); LYMPHOCYTES % 20.5 % (15.0-51.0); MEAN CORPUSCULAR HEMOGLOBIN 24.1 pg (29.0-33.0); MEAN CORPUSCULAR HGB CONC 30.7 g/dl (32.0-37.0); MEAN CORPUSCULAR VOLUME 78.4 fl (82.0-101.0); MEAN PLATELET VOLUME 12.9 fl (7.4-10.4); MONOCYTE # 0.5 10^3/ul (0.3-0.9); MONOCYTES % 6.1 % (0.0-11.0); NEUTROPHIL # 5.7 10^3/ul (1.6-7.5); NEUTROPHILS % 71.1 % (39.0-77.0); PLATELET COUNT 110 10^3/UL (140-415); RED BLOOD COUNT 3.61 10^6/ul (4.20-5.40)
[2017-04-08] MEDS: SENNA/DOCUSATE NA (8.6MG/50MG) TAB PO SCH ×2 (09:27→21:51)
[2017-04-08] MEDS: ACETAMINOPHEN/CODEINE #3 TAB PO PRN (13:46)
[2017-04-08] MEDS: WITCH HAZEL/GLYCERIN PAD PR PRN (14:23)
[2017-04-08] MEDS: BENZOCAINE 20% 56 ML SPRAY TOP PRN (14:23)
[2017-04-08 15:45] VITALS: BP 112/77; PULSE 101; RESP 16
[2017-04-08 20:30] VITALS: BP 114/58; PULSE 89; RESP 18
--- NOTE | 2017-04-08 20:58 | DS ---
Date/Time of Note Date/Time of Note DATE: 04/08/17 TIME: 20:57 Obstetrical Discharge Record Final Diagnosis Final Diagnosis: Term delivered Vaginal Delivery Obstetrical Delivery: Spontaneous Complications Augmentation: Yes Condition on Discharge Physical Assessment Voiding: Yes Bowel Movement: Yes Breast: Soft, non-tender Fundus: Firm Calf Tenderness: No Patient Condition: Stable NEHA JAMISON MD Apr 08, 2017 20:58
[2017-04-08] MEDS: FERROUS GLUCONATE (EC) 325 MG TAB PO SCH (21:51)
[2017-04-09 03:45] VITALS: BP 100/55; PULSE 78; RESP 17
[2017-04-09] MEDS: IBUPROFEN 600 MG TAB PO SCH ×3 (05:34→17:32)
[2017-04-09 08:00] VITALS: BP 95/64; PULSE 78; RESP 19
[2017-04-09] MEDS ORDERED: DIPHTH/TET/ACEL PERTUSS (ADULT) 0.5 ML VIAL IM* ONE (09:00)
[2017-04-09] MEDS: ACETAMINOPHEN/CODEINE #3 TAB PO PRN ×2 (10:29→18:15)
[2017-04-09] MEDS: SENNA/DOCUSATE NA (8.6MG/50MG) TAB PO SCH (10:29)
[2017-04-09] MEDS: FERROUS GLUCONATE (EC) 325 MG TAB PO SCH (10:29)
[2017-04-09 16:00] VITALS: BP 110/75; PULSE 79; RESP 18
== END 2017-04-09 19:00 | disposition home or self-care (01) | DRG 775 ==
LOC: OBT 17:54 → L-D 17:54 → OBT 18:25 → L-D 18:25 → PP1 04-07 08:36
PROVIDERS: ADMIT Obstetrics & Gynecology; ATTEND Obstetrics & Gynecology
PROC: 10E0XZZ Delivery of Products of Conception, External Approach (ICD-10-PCS; principal; 2017-04-07)
PROC: 0KQM0ZZ Repair Perineum Muscle, Open Approach (ICD-10-PCS; 2017-04-07)
PROC: 3E033VJ Introduction of Other Hormone into Peripheral Vein, Percutaneous Approach (ICD-10-PCS; 2017-04-07)
PROC: 3E00X4Z Introduction of Serum, Toxoid and Vaccine into Skin and Mucous Membranes, External Approach (ICD-10-PCS; 2017-04-09)
DX: O70.1 Second degree perineal laceration during delivery (principal); Z37.0 Single live birth; Z23 Encounter for immunization; Z3A.39 39 weeks gestation of pregnancy
CPT/HCPCS: 62319; 85025; 85610; 85730; 86592; 86900; 86901; 87340; 90715; 99464; G0463; J0595; J2210; J2405; J2590; J3010; J7120

== ENCOUNTER 2017-09-04 17:00 | Emergency (ER) | payer OTHER ==
[~2017-09-04] VITALS: Ht 162.6 cm; Wt 77.7 kg
[~2017-09-04 17:00] MED LIST changes: -ACET325T33 PO
[2017-09-04 17:02] VITALS: Ht 162.6 cm; Wt 77.7 kg
[2017-09-04] MEDS ORDERED: IBUPROFEN 600 MG TAB PO ONE (18:30)
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
[2017-09-04] MEDS ORDERED: IBUP-1542 PO (20:46)
[2017-09-04 20:51] VITALS: BP 125/83; PULSE 78; RESP 19
== END 2017-09-04 20:55 | disposition home or self-care (01) ==
LOC: FTE 17:00
DX: M54.2 Cervicalgia (principal)
CPT/HCPCS: 71010; 72040; 73030; Z7502; Z7610

== ENCOUNTER 2018-02-04 18:57 | Emergency (ER) | END 2018-02-04 22:17 | disposition home or self-care (01) ==

== ENCOUNTER 2018-06-03 08:12 | Emergency (ER) | END 2018-06-03 09:23 | disposition home or self-care (01) ==

== ENCOUNTER 2018-08-07 17:00 | Emergency (ER) | END 2018-08-07 17:59 | disposition home or self-care (01) ==

== ENCOUNTER 2019-03-11 17:06 | Emergency (ER) | payer OTHER ==
[~2019-03-11] VITALS: Ht 167.6 cm; Wt 80.7 kg
[~2019-03-11 17:06] MED LIST changes: +AMOX500C2 PO; +BEN25 PO; +CEPH-443 PO; +CETI10CA PO; +FLUT9.9S NASAL; +IBUP-1542 PO; +IBUP-1561 PO; +KETO5DRO71 OP; +LORA10TA3 PO; +SULF1TAB31 PO
[2019-03-11 17:11] VITALS: Ht 167.6 cm; Wt 80.7 kg
[2019-03-11] MEDS ORDERED: CEPH-443 PO (19:05)
[2019-03-11] MEDS ORDERED: ACET-141 PO (19:07)
[2019-03-11] MEDS ORDERED: IBUP-1561 PO (19:07)
--- NOTE | 2019-03-11 19:07 | ERD ---
ER Documentation Chief Complaint Chief Complaint FEVER , PAINFUL RASH ON BACK X 4 DAYS ROS All systems reviewed and are negative except as per history of present illness. Medications Home Meds Active Scripts Ibuprofen* (Motrin*) 400 Mg Tab, 400 MG PO Q6H PRN for PAIN AND OR ELEVATED TEMP, #30 TAB Prov:KRYSTIN LYLE DO 03/11/19 Acetaminophen* (Acetaminophen*) 500 MG Extra Strength Tablet, 500 MG PO Q4H PRN for PAIN AND OR ELEVATED TEMP, #30 TAB Prov:KRYSTIN LYLE 03/11/19 Cephalexin* (Keflex*) 500 Mg Capsule, 500 MG PO TID for skin infection for 5 Days, #10 CAP Prov:KRYSTIN LYLE 03/11/19 Loratadine* (Loratadine*) 10 Mg Tablet, 10 MG PO DAILY, #7 TAB Prov:MARISELA PULIDO MD 11/02/18 Ibuprofen* (Motrin*) 400 Mg Tab, 400 MG PO Q8, #15 TAB Prov:MARISELA PULIDO MD 11/02/18 Amoxicillin* (Amoxicillin*) 500 Mg Cap, 500 MG PO TID for 10 Days, CAP Prov:MARISELA PULIDO MD 11/02/18 Sulfamethoxazole/Trimethoprim* (Bactrim Ds* Tablet) 1 Each Tablet, 1 TAB PO BID, #7 TAB Prov:LORETTA JUDD PA-C 08/07/18 Cephalexin* (Keflex*) 500 Mg Capsule, 500 MG PO QID for 7 Days, CAP Prov:LORETTA JUDD PA-C 08/07/18 Ibuprofen* (Motrin*) 600 Mg Tab, 600 MG PO Q6, #30 TAB Prov:LORETTA JUDD PA-C 08/07/18 Diphenhydramine Hcl* (Benadryl*) 25 Mg Cap, 25 MG PO Q6, #30 CAP Prov:LORETTA JUDD PA-C 08/07/18 Ketotifen Fumarate (ZADITOR) 5 Ml Drops, 1 ML OP BID, #1 BOTTLE 1 drop in each eye twice daily as needed for itching Prov:LORETTA JUDD PA-C 06/03/18 Diphenhydramine Hcl* (Benadryl*) 25 Mg Cap, 25 MG PO QHS, #14 CAP Prov:LORETTA JUDD PA-C 06/03/18 Fluticasone Propionate (Flonase Allergy Relief) 9.9 Ml [place].susp, 2 SPRAY NASAL DAILY, #1 BOTTLE TO EACH NOSTRIL Prov:LORETTA JUDD PA-C 06/03/18 Cetirizine Hcl* (Zyrtec*) 10 Mg Capsule, 10 MG PO DAILY, #14 TAB.CHEW Prov:LORETTA JUDD PA-C 06/03/18 Ibuprofen* (Motrin*) 400 Mg Tab, 400 MG PO Q8 PRN for PAIN AND OR ELEVATED TEMP, #15 TAB Prov:MARISELA PULIDO MD 02/04/18 Sulfamethoxazole/Trimethoprim* (Bactrim Ds* Tablet) 1 Each Tablet, 1 TAB PO BID for 7 Days, #14 TAB Prov:MARISELA PULIDO MD 02/04/18 Cephalexin* (Keflex*) 500 Mg Capsule, 500 MG PO BID for 7 Days, #14 CAP Prov:MARISELA PULIDO MD 02/04/18 Ibuprofen* (Motrin*) 600 Mg Tab, 600 MG PO Q6, #20 TAB Prov:FNIESSE BAEZA PA-C 09/04/17 Reported Medications Ferrous Sulfate (Iron) 134 Mg Tablet, 134 MG PO DAILY, TAB 03/22/17 Multivit/Min/Fol Ac/Iron/Pren* ( S*) 1 Tab Tab, 1 TAB PO DAILY, TAB 12/16/16 Allergies Allergies: Coded Allergies: No Known Drug Allergy (Verified Allergy, Mild, 03/25/17) PMhx/Soc History of Surgery: Yes (CHOLECYSTECTOMY) Anesthesia Reaction: No Hx Neurological Disorder: No Hx Respiratory Disorders: No Hx Cardiac Disorders: No Hx Psychiatric Problems: No Hx Miscellaneous Medical Probl: No Hx Alcohol Use: No Hx Substance Use: No Hx Tobacco Use: No Smoking Status: Never smoker Physical Exam Vitals Vital Signs Date Temp Pulse Resp B/P (MAP) Pulse Ox O2 O2 Flow FiO2 Time Delivery Rate 03/11/19 98.5 81 18 112/77 97 17:11 (89) Physical Exam Const: No acute distress Head: Atraumatic Eyes: Normal Conjunctiva ENT: Normal External Ears, Nose and Mouth. Neck: Full range of motion. No meningismus. Resp: Clear to auscultation bilaterally Cardio: Regular rate and rhythm, no murmurs Abd: Soft, non tender, non distended. Normal bowel sounds Skin: No petechiae or rashes Back: No midline or flank tenderness Ext: No cyanosis, or edema Neur: Awake and alert Psych: Normal Mood and Affect Departure Diagnosis: Primary Impression: Cellulitis Site of cellulitis: unspecified site Qualified Codes: L03.90 - Cellulitis, unspecified Condition: Fair Patient Instructions: Cellulitis Additional Instructions: Llame al doctor MAANA y ervin natalio DARRIAN PARA DENTRO DE 1-2 CAMACHO.Dgale a la secretaria que nosotros le instruimos hacer esta darrian.Avise o llame si florez condicin se empeora antes de la darrian. Regresa aqui si peor o no mejor. KRYSTIN LYLE DO Mar 11, 2019 19:07
[2019-03-11 19:14] VITALS: BP 118/75; PULSE 70; RESP 18
== END 2019-03-11 19:14 | disposition home or self-care (01) ==
LOC: FTE 17:06
DX: L03.90 Cellulitis, unspecified (principal)
CPT/HCPCS: 99283

== ENCOUNTER 2019-06-04 10:14 | Emergency (ER) | payer OTHER ==
[~2019-06-04] VITALS: Wt 81.6 kg
[~2019-06-04 10:14] MED LIST changes: +ACET-141 PO; +BUTA1CAP38 PO; +CEPH500C PO; +HYDR-4011 PO
[2019-06-04 10:35] VITALS: BP 122/81; RESP 24; Wt 81.6 kg
[2019-06-04] MEDS ORDERED: ONDANSETRON (ODT) 4 MG TAB ODT STA (11:58)
[2019-06-04] MEDS ORDERED: ACETAMINOPHEN 500 MG TAB PO STA (11:58)
[2019-06-04] MEDS ORDERED: LIDOCAINE 2% (MDV) 20 ML INJ INJ ONE (12:00)
[2019-06-04] MEDS ORDERED: LIDOCAINE 4% CR TOP ONE (12:30)
[2019-06-04 13:10] VITALS: PULSE 84
== END 2019-06-04 13:15 | disposition home or self-care (01) ==
LOC: FTE 10:14
DX: L02.31 Cutaneous abscess of buttock (principal); N39.0 Urinary tract infection, site not specified; Z87.891 Personal history of nicotine dependence
CPT/HCPCS: 10060; 81001; 81025; Z7610; 81003